=== PATIENT | female | born 1950 | race Caucasian/White ===

== ENCOUNTER → 2021-05-28 15:05 | Outpatient (CLI) | payer OTHER, SELFPAY ==
[2021-05-28 16:34] LABS: Absolute Lymphocyte Count 2.11 X10^3/uL (0.83-4.51); Absolute Neutrophil Count 3.5 X10^3/uL (2.0-7.7); Basophil# 0.06 X10^3/uL; Basophil% 0.9 % (0-1); Eosinophil# 0.13 X10^3/uL; Hematocrit 40.6 % (37-47); Hemoglobin 13.1 g/dL (12.0-15.0); Lymphocyte # 2.11 X10^3/ul (0.83-4.51); Lymphocyte % 32.1 % (19-41); Mean Corp Hgb Conc 32.3 g/dL (32-36); Mean Corpuscular Hgb 27.2 pg (27.0-32.0); Mean Corpuscular Volume 84.4 fL (81-99); Mean Platelet Vol. 10.7 fl (6.2-12.0); Monocyte# 0.71 X10^3/uL; Monocyte% 10.8 % (0-10); NRBC Flagged by Analyzer 0 % (0-5); Neutrophil # 3.54 X10^3/uL (2.7-7.7); Neutrophil % 53.9 % (47-70); Platelet Count 274 K/mm3 (150-450); RBC Distribution Width CV 13.8 % (11.6-14.6); RBC Distribution Width SD 42.5 fl (35.1-43.9); Red Blood Count 4.81 M/mm3 (4.2-5.4); White Blood Count 6.6 K/mm3 (4.4-11.0)
[2021-05-28 16:53] LABS: Vitamin D,25 Hydroxy 72.2 ng/mL
[2021-05-28 17:03] LABS: AST(SGOT) 24 U/L (15-37); Alanine Aminotransfer ALT/SGPT 37 U/L (13-56); Alkaline Phosphatase 55 U/L (45-117); Anion Gap 8 (5-15); BUN 15 mg/dL (7-18); BUN/Creat Ratio 18.5 RATIO (10-20); Calcium,Total 9.9 mg/dL (8.5-10.1); Chloride 107 mmol/L (98-107); Cholesterol 179 mg/dL (200); Creatinine, Serum 0.81 mg/dL (0.55-1.02); EST Glomerular Filtration Rate 74 mL/min (>60); Est Glom Filt Rate - Afr Amer 90 mL/min (>60); Free T3 2.8 pg/mL (2.18-3.98); Glucose 89 mg/dL (74-106); High Density Lipoprotein 62 mg/dL; Lipase 65 U/L (73-393); Magnesium 2.1 mg/dL (1.6-2.6); Potassium 4.4 mmol/L (3.5-5.1); Sodium Level 140 mmol/L (136-145); T4 Free Direct 1.28 ng/dL (0.76-1.46); Thyroid Stim Hormone (TSH) 2.39 uIU/mL (0.358-3.74); Triglycerides 76 mg/dL; Very Low Density Lipoprotein 15 mg/dL (5-40)
[2021-05-28 17:13] LABS: Hemoglobin A1c 5.4 % (3.8-5.6)
[2021-05-28 17:57] LABS: Erythrocyte Sedimentation Rate 38 mm/hr (0-30)
== END ==
PROVIDERS: PCP Family Medicine; Visit Provider Internal Medicine
DX: I89.0 Lymphedema, not elsewhere classified (principal); R10.9 Unspecified abdominal pain; L97.909 Non-pressure chronic ulcer of unspecified part of unspecified lower leg with unspecified severity
CPT/HCPCS: 36415; 80053; 80061; 82306; 83036; 83690; 83735; 84439; 84443; 84481; 85025; 85652

== ENCOUNTER 2021-05-30 17:43 | Emergency (ER) | payer OTHER, SELFPAY ==
[2021-05-30 17:44] VITALS: BP 221/80; PULSE 72; RESP 16; TEMP 36.3; O2SAT 98; BMI 35.9
--- NOTE | 2021-05-30 18:24 | CT_ITS ---
STUDY: CT ABDOMEN AND PELVIS WITH CONTRAST REASON FOR EXAM: Female, 70 years old. Abdominal pain -- IV PO Contrast RADIATION DOSAGE (If Supplied By Facility): CTDIvol = ( 18.24 ) mGy, DLP = ( 1338.95 ) mGycm TECHNIQUE: Transaxial images were obtained from the dome of the diaphragm to the symphysis pubis with oral contrast. Oral and amp; IV Gastrografin and amp; 100mL Isovue-370 was administered. Sagittal and coronal images were reconstructed. Individualized dose optimization techniques were used for this CT. COMPARISON: None. FINDINGS: There are chronic interstitial fibrotic changes of the lung bases. Normal liver. Normal gallbladder and extrahepatic biliary system. Normal spleen. Normal pancreas. Normal bilateral adrenal glands. There is mild cortical atrophy of the right kidney, consistent with chronic medical renal disease. Normal left kidney. Normal visualized stomach. Normal small intestine. There are multiple colonic diverticula consistent with diverticulosis. The appendix is visualized and appears normal. The colon is stool-filled. No free air or free fluid is seen. There is diffuse atherosclerotic calcification of the abdominal aorta, without a demonstrated aneurysm. Normal inferior vena cava. Normal retroperitoneum. Normal urinary bladder. There is atrophy of the uterus. There is a small umbilical hernia containing fat. There are diffuse degenerative changes of the visualized lumbar spine. Chronic appearing compression deformities are present from L1 down to L5. CT/Abdomen/Pelvis WITH Contrast IMPRESSION: 1. Colonic diverticulosis Electronically Signed: Heber Aylaa MD at 21:42 EST , Service support ,
--- NOTE | 2021-05-30 18:25 | EDS_ITS ---
HPI HPI - GI History of Present Illness Chief Complaint: Abd Pain Informant: patient Abdominal Pain/Flank Pain Onset: Month(s) Context: Gradual Onset Timing: Continuous Quality: Aching, Burning, Cramping and Sharp Location: Diffuse Worsened by: - (Everything) Relieved by: Nothing Nausea/Vomiting/Emesis GI Symptom: Negative for Nausea and Vomiting Quality: Negative for Blood streaks, Coffee ground and Hematemesis Diarrhea/Melena/Hematochezia GI Symptom: Negative for Diarrhea, Melena and Hematochezia Stool Quality: Negative for Black, Maroon and BRB per rectum Associated Symptoms Associated Symptoms: Negative for Dysuria, Frequency and Hematuria Narrative Narrative: Patient presents with abdominal pain that has gotten worse over the past couple weeks. Patient states it is gradually getting worse. Patient describes her pain as aching, cramping, sharp, and stabbing, and burning. Patient states that everything makes it worse and nothing makes it better. Patient saw her primary care physician for this 2 days ago. Patient states he did lab work which was all normal. Patient states he was planning on scheduling a CT scan of her abdomen and pelvis in 2 weeks. Patient states she could not wait that long and was told to come to the emergency department. Patient denies any nausea or vomiting. Patient denies any diarrhea, melena, or hematochezia. Patient states her pain radiates into her right leg. Patient also states she has a sore on her right lower leg that will not heal. [facility] Medical History History of fracture Lymphedema Home Medications ASTAXANTHIN PO 05/28/21 [History Last Taken Unknown] B COMPLEX PO 05/28/21 [History Last Taken Unknown] COMPLETE PROBIOTICS PO 05/28/21 [History Last Taken Unknown] EYE SUPPORT PO 05/28/21 [History Last Taken Unknown] FERMENTED TUMERIC PO 05/28/21 [History Last Taken Unknown] FERMENTED MUSHROOM PO 05/28/21 [History Last Taken Unknown] IODINE PO 05/28/21 [History Last Taken Unknown] JOINT FORMULA PO 05/28/21 [History Last Taken Unknown] LIPSOMAL PO 05/28/21 [History Last Taken Unknown] LIVER SUPPORT PO 05/28/21 [History Last Taken Unknown] ORANIC FERMENTED BEETS PO 05/28/21 [History Last Taken Unknown] ORGANIC COLLAGEN PO 05/28/21 [History Last Taken Unknown] QUERCETIN AND PTEROSTILBENE PO 05/28/21 [History Last Taken Unknown] SUPER LYSINE PO 05/28/21 [History Last Taken Unknown] TRACE MINERAL PO 05/28/21 [History Last Taken Unknown] UBIQUINOL PO 05/28/21 [History Last Taken Unknown] VITAMIN D3 AND K2 PO 05/28/21 [History Last Taken Unknown] VITAMIN E PO 05/28/21 [History Last Taken Unknown] WHOLE FOOD VITAMIN PO 05/28/21 [History Last Taken Unknown] ZINC AND SELENIUM PO 05/28/21 [History Last Taken Unknown] hydrocodone-acetaminophen 1 tab PO Q6H PRN PRN 3 Days #10 tablet 05/30/21 [Rx Last Taken Unknown] Allergy/AdvReac Type Severity Reaction Status Date / Time No Known Allergies Allergy Verified 05/30/21 17:43 Family History (Updated 05/24/21 @ 11:14 by Nicole Anderson) Mother Arthritis Bowel disease Cervical cancer Depression Diabetes Myocardial infarction Heart disease Grandmother Colon cancer Father Diabetes Myocardial infarction Brother Thyroid disorder Sister Thyroid disorder Surgical History History of cholecystectomy Social History Smoking Status: Never smoker alcohol intake: never substance use type: does not use what type of physical activity do you participate in: walking ROS ROS ED Constitutional Constitutional ED: Denies chills or fever(s) Eyes Eyes: Denies blurry vision or change in vision ENT ENT ED: Denies rhinorrhea or sore throat Cardiovascular Cardiovascular: Denies chest pain or palpitations Respiratory/Chest Respiratory/Chest: Denies cough or dyspnea Gastrointestinal Gastrointestinal: Reports abdominal pain; Denies nausea or vomiting Genitourinary Genitourinary ED: Denies dysuria or hematuria Musculoskeletal Musculoskeletal: Reports back pain; Denies neck pain Integumentary Denies abscess or rash Neurologic Neurologic: Denies headache(s) or weakness Allergic/Immunologic Allergic/Immunologic ED: Denies mouth swelling or urticaria EXAM Physical Exam Const Vital Signs: 05/30/21 17:44 Temperature 97.4 F L Temperature Source Temporal Pulse Rate 72 Respiratory Rate 16 Blood Pressure 221/80 H Blood Pressure Mean 127 Pulse Ox 98 Oxygen Delivery Method Room Air Positive well nourished and well developed General Appearance ED: well developed HEENT Reports moist mucous membranes Neck supple and no JVD Resp normal respiratory effort and clear to auscultation bilaterally Cardio regular rate, regular rhythm and no murmurs GI normal to inspection, nondistended, normoactive bowel sounds and non-distended Auscultation: normoactive bowel sounds Palpation: soft and tender epigastric, LLQ, RLQ, LUQ, RUQ, periumbilical and suprapubic; Negative for guarding or rebound tenderness present Extremity normal to inspection General Extremety ED: Negative for edema or tenderness General Extremity: Negative for edema Neuro oriented x3, CN's II-XII intact bilaterally and no sensory deficits noted Sensorium / Orientation: alert Motor Exam: strength 5/5 throughout Psych mental status grossly normal Skin no rashes or lesions noted Skin Narrative: There is a 2 cm diameter ulceration over the anterior lateral aspect of the right lower leg. There is no surrounding erythema. There is no purulent discharge or drainage. There are no signs of any infection. MDM MDM MDM Narrative Medical decision making narrative: Patient was given IV fluids, morphine, and Zofran. CBC was within normal limits. Comprehensive metabolic profile was within normal limits. Urinalysis does not show any evidence of urinary tract infection. Patient had a recent lipase done which was normal. CT scan of the abdomen pelvis was obtained. There is no acute intra-abdominal abnormality. There is diverticulosis but no evidence of diverticulitis. The appendix appears normal. This was interpreted by the radiologist and reviewed by myself. Patient was given a repeat dose of morphine here. Patient was given a dose of [place] prior to discharge. Patient was given a prescription for a short course of [place]. Patient was instructed to follow-up with her primary care physician in 3 to 5 days for further evaluation. Patient understands and is agreeable with the plan. All questions were answered. Lab Data Attestation: I reviewed the patient's lab results. Labs: Laboratory Results - last 24 hr 05/30/21 05/30/21 05/30/21 18:50 18:50 19:28 WBC 6.2 RBC 4.75 Hgb 12.5 Hct 39.8 MCV 83.8 MCH 26.3 L MCHC 31.4 L RDW Std Deviation 42.3 RDW Coeff of [place] 13.8 Plt Count 255 MPV 10.2 Immature Gran % (Auto) 0.600 Neut % (Auto) 63.6 Lymph % (Auto) 23.3 [place] % (Auto) 10.9 H Eos % (Auto) 0.8 Baso % (Auto) 0.8 Absolute Neuts (auto) 4.0 Absolute Lymphs (auto) 1.45 Nucleated RBC % 0 Sodium 143 Potassium 3.8 Chloride 110 H Carbon Dioxide 26.0 Anion Gap 7 BUN 15 Creatinine 0.76 Estim Creat Clear Calc 43.92 Est GFR (MDRD) Af Amer 98 Est GFR (MDRD) Non-Af 81 BUN/Creatinine Ratio 19.9 Glucose 100 Calcium 9.4 Total Bilirubin 0.60 AST 24 ALT 35 Alkaline Phosphatase 57 Total Protein 7.5 Albumin 3.5 Globulin 4.0 Albumin/Globulin Ratio 0.9 Urine Color Yellow Urine Clarity Clear Urine pH 6.0 Ur Specific [place] 1.010 Urine Protein Negative Urine Glucose (UA) Normal Urine Ketones 15 H Urine Occult Blood Negative Urine Nitrite Negative Urine Bilirubin Negative Urine Urobilinogen Normal Ur Leukocyte Esterase 25 H Urine RBC 0 SEEN Urine WBC 0-5 SEEN Ur Squamous Epith Cells 0-5 SEEN Urine Bacteria 1+ Urine Mucus 0 SEEN Radiography Diagnostic Testing: Clinical Impression(s) from Imaging Studies Abdomen/Pelvis CT 05/30/21 18:24 IMPRESSION: 1. Colonic diverticulosis Electronically Signed: Heber Ayala MD at 21:42 EST , Service support , Discharge Plan Triage Chief Complaint: Abd Pain ED Provider: Sb Ward Dx/Rx/DC Orders Clinical Impression: Abdominal pain Instructions: ED Abdominal Pain Unkn Cause Fem Prescriptions: New hydrocodone-acetaminophen [hydrocodone-acetaminophen] 1 TABLET tablet 1 tab PO Q6H PRN PRN (Reason: Pain) 3 Days Qty: 10 RF: 0 No Action JOINT FORMULA PO RF: 0 IODINE PO RF: 0 TRACE MINERAL PO RF: 0 EYE SUPPORT PO RF: 0 ASTAXANTHIN PO RF: 0 UBIQUINOL PO RF: 0 LIPSOMAL PO RF: 0 VITAMIN D3 AND K2 PO RF: 0 ORANIC FERMENTED BEETS PO RF: 0 QUERCETIN AND PTEROSTILBENE PO RF: 0 LIVER SUPPORT PO RF: 0 ZINC AND SELENIUM PO RF: 0 COMPLETE PROBIOTICS PO RF: 0 FERMENTED TUMERIC PO RF: 0 VITAMIN E PO RF: 0 ORGANIC COLLAGEN PO RF: 0 B COMPLEX PO RF: 0 FERMENTED MUSHROOM PO RF: 0 SUPER LYSINE PO RF: 0 WHOLE FOOD VITAMIN PO RF: 0 Primary Care Provider: Murtaza Stock Referrals: Luciana Harman MD [STAFF PHYSICIAN] - 3-5 Days Murtaza Stock MD [Primary Care Provider] - 3-5 Days Disposition Disposition: Home, Self Care
[2021-05-30] MEDS: Ondansetron 4 MG/2 ML Vial IV (18:53)
[2021-05-30] MEDS: 0.9% Normal Saline 1,000 ML 1000 ML IV (18:53)
[2021-05-30] MEDS: Morphine 4 MG/ML Syringe IV (18:53)
[2021-05-30 19:12] LABS: Absolute Lymphocyte Count 1.45 X10^3/uL (0.83-4.51); Basophil# 0.05 X10^3/uL; Basophil% 0.8 % (0-1); Eosinophil# 0.05 X10^3/uL; Eosinophils% 0.8 % (0-5); Hematocrit 39.8 % (37-47); Hemoglobin 12.5 g/dL (12.0-15.0); Lymphocyte # 1.45 X10^3/ul (0.83-4.51); Lymphocyte % 23.3 % (19-41); Mean Corp Hgb Conc 31.4 g/dL (32-36); Mean Corpuscular Hgb 26.3 pg (27.0-32.0); Mean Corpuscular Volume 83.8 fL (81-99); Mean Platelet Vol. 10.2 fl (6.2-12.0); Monocyte# 0.68 X10^3/uL; Monocyte% 10.9 % (0-10); NRBC Flagged by Analyzer 0 % (0-5); Neutrophil # 3.96 X10^3/uL (2.7-7.7); Neutrophil % 63.6 % (47-70); Platelet Count 255 K/mm3 (150-450); RBC Distribution Width CV 13.8 % (11.6-14.6); RBC Distribution Width SD 42.3 fl (35.1-43.9); Red Blood Count 4.75 M/mm3 (4.2-5.4); White Blood Count 6.2 K/mm3 (4.4-11.0)
[2021-05-30 19:16] LABS: ALB/GLOB Ratio 0.9 RATIO (0.9-2.4); AST(SGOT) 24 U/L (15-37); Alanine Aminotransfer ALT/SGPT 35 U/L (13-56); Albumin, Serum 3.5 g/dL (3.2-5.0); Alkaline Phosphatase 57 U/L (45-117); Anion Gap 7 (5-15); BUN 15 mg/dL (7-18); BUN/Creat Ratio 19.9 RATIO (10-20); Calcium,Total 9.4 mg/dL (8.5-10.1); Chloride 110 mmol/L (98-107); Creatinine, Serum 0.76 mg/dL (0.55-1.02); EST Glomerular Filtration Rate 81 mL/min (>60); Est Glom Filt Rate - Afr Amer 98 mL/min (>60); Estimated Creatinine Clearance 43.92 ml/min; Glucose 100 mg/dL (74-106); Potassium 3.8 mmol/L (3.5-5.1); Protein, Total 7.5 g/dL (6.4-8.2); Sodium Level 143 mmol/L (136-145)
[2021-05-30 19:38] LABS: Mucous, Urine 0 SEEN /hpf (<or=2+); Red Blood Cells-Urine 0 SEEN /hpf (0-5)
[2021-05-30 19:40] LABS: Color, Urine Yellow (Yellow); Glucose, Dipstick Normal (Normal); Ketone-Dipstick 15 mg/dl (Negative); Leukocyte Esterase-Dipstick 25 /ul (Negative); Nitrite-Dipstick Negative (Negative); Occult Blood-Urine Negative /ul (Negative); Protein-Dipstick Negative (Negative); Urine Bilirubin Dipstick Negative (Negative); Urine Clarity Clear (Clear); Urine Urobilinogen Normal (Normal)
[2021-05-30 19:48] LABS: Bacteria 1+ /hpf (None Seen); Squamous Epithelial Cells - UA 0-5 SEEN /hpf (5-10); White Blood Cells 0-5 SEEN /hpf (0-5)
[2021-05-30] MEDS: HYDROcodone Bitartrate/Apap 5/325 Tablet PO (22:52)
[2021-05-30 22:54] VITALS: BP 155/88; PULSE 81; PULSE 82; RESP 16; O2SAT 97
== END 2021-05-30 23:00 | disposition home or self-care (01) ==
PROVIDERS: Emergency Provider Emergency Medicine; PCP Family Medicine
DX: R10.9 Unspecified abdominal pain (principal); I89.0 Lymphedema, not elsewhere classified; L97.819 Non-pressure chronic ulcer of other part of right lower leg with unspecified severity; Z79.899 Other long term (current) drug therapy
CPT/HCPCS: 74177; 80053; 81001; 85025; 96361; 96374; 96375; 99283; J7030; Q9967; A4216; J2405

== ENCOUNTER → 2021-06-05 12:03 | Outpatient (CLI) | payer OTHER, SELFPAY ==
--- NOTE | 2021-06-05 12:06 | RAD_ITS ---
STUDY: X-RAY - PELVIS AND BILATERAL HIPS REASON FOR EXAM: Female, 70 years old. bilateral hip pain worse on right TECHNIQUE: AP view of the pelvis.? 2 views of the right hip, and 2 views of the left hip were obtained. COMPARISON: None. FINDINGS: There is a non-specific bowel gas pattern. Normal visualized soft tissue structures. Normal bilateral iliac wings, sacroiliac joints and visualized sacrum. Normal bilateral superior and inferior pubic rami. Normal pubic symphysis. Normal bilateral ischial tuberosities. Normal visualized right femoral head. Normal right acetabulum. Normal right hip joint. Normal visualized left femoral head. Normal left acetabulum. Normal left hip joint. RAD/Hips B/L min 2 views w/ Pelvis IMPRESSION: Normal x-ray examination of the pelvis and bilateral hips. Electronically Signed: Harsha Sandoval MD at 14:24 EST Tel , Service support ,
--- NOTE | 2021-06-05 12:15 | RAD_ITS ---
STUDY: X-RAY - LUMBAR SPINE REASON FOR EXAM: Female, 70 years old. low back pain, right side TECHNIQUE: 2 view(s) of the lumbar spine were obtained. COMPARISON: None FINDINGS: Normal lumbar lordosis. Mild scoliosis centered at L3. There is a normal alignment of the vertebrae. Mild loss of height of the L1 and L2 vertebral bodies consistent with mild compression fractures. These may be acute, subacute, chronic and clinical correlation and MRI would be useful. There is multi-level degenerative disc disease with multi-level disc space narrowing. Facet hypertrophy in the lower lumbar spine. The soft tissue structures are unremarkable. RAD/Lumbar Spine 2 or 3 Views IMPRESSION: 1. Mild compression fractures of L1 and L2 which may be acute, subacute, or chronic. Clinical correlation and correlation MRI may be useful. 2. Mild dextroscoliosis with degenerative disc disease. Electronically Signed: Harsha Sandoval MD at 14:25 EST Tel , Service support ,
== END ==
PROVIDERS: PCP Internal Medicine; Referring Provider Physician Assistant; Visit Provider Physician Assistant
DX: L97.909 Non-pressure chronic ulcer of unspecified part of unspecified lower leg with unspecified severity (principal); M54.50 Low back pain, unspecified; M25.552 Pain in left hip; M25.551 Pain in right hip
CPT/HCPCS: 72100; 73521; 87070; 87077; 87186; 87205

== ENCOUNTER 2021-07-23 16:55 | Outpatient (CLI) | payer OTHER, SELFPAY ==
--- NOTE | 2021-07-23 17:05 | MRI_ITS ---
STUDY: MR Spine Lumbar W/O Contrast 07/25/2021 4:46 PM REASON FOR EXAM: Female, 71 years old. Back pain BACK PAIN, no injury TECHNIQUE: MR Spine Lumbar W/O Contrast Standardized fat and water weighted pulse sequences were obtained. COMPARISON: xr Jun 05 2021 12:20pm FINDINGS: T12-L1: Loss of intervertebral disc height. There is endplate spondylosis of the vertebral body. Normal central canal and intervertebral neuroforamina. There is bilateral facet arthropathy. Acute T12 compression deformity with anterior wedging around 15%. Normal lumbar lordosis. There is no substantial scoliosis. Normal conus medullaris that terminates at the L1. There are atherosclerotic vascular calcifications. L1-2: Loss of intervertebral disc height. There is endplate spondylosis of the vertebral body. Normal central canal and intervertebral neuroforamina. There is bilateral facet arthropathy. Acute L1 compression deformity. 5.1 mm retropulsed fracture fragment into the spinal canal. with anterior wedging around 27%. L2-3: Loss of intervertebral disc height. There is endplate spondylosis of the vertebral body. There is bilateral facet arthropathy. Mild spinal stenosis. L3-4: Loss of intervertebral disc height. There is endplate spondylosis of the vertebral body. There is bilateral facet arthropathy. Mild spinal stenosis. Acute L3 compression deformity. No significant loss of body height. L4-5: Loss of intervertebral disc height. There is endplate spondylosis of the vertebral body. There is bilateral facet arthropathy. Mild spinal stenosis. Old superior endplate compression deformity. L5-S1: Loss of intervertebral disc height. There is endplate spondylosis of the vertebral body. There is bilateral facet arthropathy. Mild spinal stenosis. Old superior endplate compression deformity. Normal visualized sacral ala. Normal visualized paraspinous soft tissue structures. MRI/Spine Lumbar (Routine) IMPRESSION: Multilevel degenerative changes, as described above. Multilevel spinal stenosis. T12-L1: Acute T12 compression deformity with anterior wedging around 15%. L1-2: Acute L1 compression deformity. 5.1 mm retropulsed fracture fragment into the spinal canal. with anterior wedging around 27%. L3-4: Acute L3 compression deformity. No significant loss of body height. Electronically Signed: Tyrone Otero MD at 16:53 EST Reading Location ID and State: [facility] / [place] , Service support ,
== END 2021-07-23 23:59 | disposition home or self-care (01) ==
LOC: MRI 16:56
PROVIDERS: PCP Internal Medicine; Visit Provider Anesthesiology Pain Medicine
DX: M80.08XA Age-related osteoporosis with current pathological fracture, vertebra(e), initial encounter for fracture (principal); M54.16 Radiculopathy, lumbar region
CPT/HCPCS: 72148

== ENCOUNTER 2021-08-30 12:56 | Outpatient (CLI) | payer OTHER, SELFPAY ==
[2021-08-30 13:04] LABS: Bacteria 0 SEEN /hpf (None Seen); Mucous, Urine 0 SEEN /hpf (<or=2+); Red Blood Cells-Urine 0 SEEN /hpf (0-5); White Blood Cells 0 SEEN /hpf (0-5)
--- NOTE | 2021-08-30 13:16 | EKG12_ITS ---
Test Reason : PREOP Blood Pressure : / mmHG Vent. Rate : 083 BPM Atrial Rate : 083 BPM P-R Int : 158 ms QRS Dur : 062 ms QT Int : 376 ms P-R-T Axes : 058 037 048 degrees QTc Int : 441 ms Normal sinus rhythm Low voltage QRS Septal infarct , age undetermined Abnormal ECG Confirmed by LARISSA NAVARRO, TAIWO ([id number]), book editor JO-ANN MCFARLAND ([id number]) on 08/31/2021 8:58:20 AM Referred By: Luciana Harman Confirmed By:TAIWO DIAS MD
--- NOTE | 2021-08-30 13:16 | ECHOD_ITS ---
Reason For Study: PRO-OPERATIVE Procedure This was a 2D Doppler, Color Flow transthoracic echocardiogram. The study was technically difficult. Exam performed in department. Left Ventricle Normal LV size. Left ventricular systolic function is normal. The estimated ejection fraction is 70 %. No evidence for diastolic dysfunction. No regional wall motion abnormalities noted. Right Ventricle Normal RV size. Normal systolic function. Atria The left atrium is mildly enlarged. Normal right atrium. No doppler evidence for ASD. Mitral Valve There is mild mitral annular calcification. Anterior leaflet diffuse mitral valve thickening. Mild- Moderate (1-2+) mitral valve insufficiency. Tricuspid Valve Normal tricuspid valve. Trivial tricuspid valve insufficiency. Right ventricular systolic pressure estimated to be 36 mmHg. Aortic Valve Trisinus/trileaflet aortic valve. Mild focal aortic valve calcification. Pulmonic Valve The pulmonic valve is not well visualized. Great Vessels Normal sized aortic root. Pericardium/Pleural No pericardial effusion. MMode/2D Measurements & Calculations LVIDd: 3.9 cm IVSd: 1.0 cm Ao root diam: 3.1 cm LVIDs: 2.5 cm LVPWd: 1.1 cm RVDd: 3.2 cm FS: 35.9 % LAV(MOD-bp): 35.6 ml LVAd ap4: 28.9 cm2 SV(MOD-sp4): 58.8 ml LAV(MOD-bp) Indexed: 18.1 ml/m2 LVLd ap4: 7.9 cm LAV(MOD-sp2): 37.4 ml EDV(MOD-sp4): 87.5 ml LAV(MOD-sp4): 30.4 ml EDV(sp4-el): 89.5 ml LVAs ap4: 14.2 cm2 LVLs ap4: 6.1 cm ESV(MOD-sp4): 28.7 ml ESV(sp4-el): 28.1 ml EF(MOD-sp4): 67.2 % EF(sp4-el): 68.6 % SV(sp4-el): 61.4 ml LA A4 area: 12.6 cm2 LA dimension(2D): 3.7 cm RA A4 area: 13.5 cm2 Time Measurements MV dec time: 0.15 sec Doppler Measurements & Calculations MV E max marino: 123.5 cm/sec Lat Peak E' Marino: 10.3 cm/sec Med Peak E' Marino: 14.2 cm/sec MV A max marino: 92.9 cm/sec E/E' lat: 11.9 E/E' med: 8.7 MV E/A: 1.3 Ao V2 max: 132.3 cm/sec LV V1 max: 138.3 cm/sec PA V2 max: 89.1 cm/sec Ao max P.0 mmHg LV V1 max P.7 mmHg TR max marino: 288.5 cm/sec TR max P.3 mmHg ECHO/Echo Complete Interpretation Summary The study was technically difficult. Left ventricular systolic function is normal. The estimated ejection fraction is 70 %. The left atrium is mildly enlarged. There is mild mitral annular calcification. Anterior leaflet diffuse mitral valve thickening. Mild-Moderate (1-2+) mitral valve insufficiency. Trivial tricuspid valve insufficiency. Mild focal aortic valve calcification. Right ventricular systolic pressure estimated to be 36 mmHg. No evidence for diastolic dysfunction. Ordering Physician: Luciana Harman Referring Physician: Luciana Harman Performed By: Shavon Mahmood RDCS
[2021-08-30 13:33] LABS: Absolute Lymphocyte Count 2.07 X10^3/uL (0.83-4.51); Absolute Neutrophil Count 3.3 X10^3/uL (2.0-7.7); Basophil# 0.06 X10^3/uL; Eosinophil# 0.12 X10^3/uL; Eosinophils% 1.9 % (0-5); Hematocrit 33.7 % (37-47); Hemoglobin 10.6 g/dL (12.0-15.0); Lymphocyte # 2.07 X10^3/ul (0.83-4.51); Lymphocyte % 32.9 % (19-41); Mean Corp Hgb Conc 31.5 g/dL (32-36); Mean Corpuscular Hgb 26.9 pg (27.0-32.0); Mean Corpuscular Volume 85.5 fL (81-99); Monocyte# 0.76 X10^3/uL; Monocyte% 12.1 % (0-10); NRBC Flagged by Analyzer 0 % (0-5); Neutrophil # 3.26 X10^3/uL (2.7-7.7); Neutrophil % 51.6 % (47-70); Platelet Count 284 K/mm3 (150-450); RBC Distribution Width CV 14.5 % (11.6-14.6); RBC Distribution Width SD 44.8 fl (35.1-43.9); Red Blood Count 3.94 M/mm3 (4.2-5.4); White Blood Count 6.3 K/mm3 (4.4-11.0)
[2021-08-30 13:57] LABS: Anion Gap 3 (5-15); BUN 16 mg/dL (7-18); BUN/Creat Ratio 21.3 RATIO (10-20); Calcium,Total 9.2 mg/dL (8.5-10.1); Chloride 109 mmol/L (98-107); Creatinine, Serum 0.75 mg/dL (0.55-1.02); EST Glomerular Filtration Rate 81 mL/min (>60); Est Glom Filt Rate - Afr Amer 98 mL/min (>60); Glucose 108 mg/dL (74-106); Sodium Level 139 mmol/L (136-145)
[2021-08-30 14:00] LABS: BNP,B-Type NATRIURETIC PEPTIDE 102.4 pg/mL (0-100)
[2021-08-30 14:24] LABS: Color, Urine Yellow (Yellow); Glucose, Dipstick Normal (Normal); Ketone-Dipstick Negative (Negative); Leukocyte Esterase-Dipstick Negative /ul (Negative); Nitrite-Dipstick Negative (Negative); Occult Blood-Urine Negative /ul (Negative); Protein-Dipstick Negative (Negative); Specific Gravity, Urine 1.005 (1.002-1.030); Urine Bilirubin Dipstick Negative (Negative); Urine Clarity Clear (Clear); Urine Urobilinogen Normal (Normal); Urine pH 6.5 (5.0 - 8.0)
[2021-08-30 14:40] LABS: Squamous Epithelial Cells - UA 0-5 SEEN /hpf (5-10)
== END 2021-08-30 23:59 | disposition home or self-care (01) ==
PROVIDERS: PCP Internal Medicine; Referring Provider Internal Medicine; Visit Provider Internal Medicine
DX: M81.0 Age-related osteoporosis without current pathological fracture (principal); L97.909 Non-pressure chronic ulcer of unspecified part of unspecified lower leg with unspecified severity; I89.0 Lymphedema, not elsewhere classified; R31.9 Hematuria, unspecified; R10.9 Unspecified abdominal pain
CPT/HCPCS: 36415; 80048; 81001; 83880; 85025; 93005; 93306

== ENCOUNTER 2021-09-04 09:43 | Outpatient (RCR) | payer OTHER, SELFPAY ==
[2021-09-04 10:12] VITALS: BP 194/86; PULSE 82; RESP 16; TEMP 36.2; BMI 38.7
--- NOTE | 2021-09-04 12:25 | PCM.WC.HP ---
History of Present Illness Date of Service: 09/04/21 Progress of Wound: 79-year-old female presents to clinic with bilateral leg swelling and full-thickness ulcerations. Patient notes she has had these ulcerations for greater than 6 months and dealt with them all summer she worked. She suffered a compression fractures and her spine. She recently underwent kyphoplasty approximately 2 weeks prior to this visit. She notes some increased swelling to bilateral legs with pain. She notes redness to the area. She denies any constitutional symptoms. She denies using any compression or at home dressings. She notes that she gets significant pain when there is anything touching her wounds with the wound periwound skin. She denies any other treatments at this time and notes a remote history of lymphedema as a diagnosis. Patient recently underwent an echocardiogram which was normal for her with regards to systolic and diastolic function and an ejection fraction of 70%. Patient has normal renal function. Patient was seen in the ED did have an elevated BNP. Patient has normal hepatic function. No other complaints. [facility] Medical History History of fracture Lymphedema Home Medications B COMPLEX PO 05/28/21 [History Last Taken Unknown] COMPLETE PROBIOTICS PO 05/28/21 [History Last Taken Unknown] EYE SUPPORT PO 05/28/21 [History Last Taken Unknown] FERMENTED TUMERIC PO 05/28/21 [History Last Taken Unknown] FERMENTED MUSHROOM PO 05/28/21 [History Last Taken Unknown] IODINE PO 05/28/21 [History Last Taken Unknown] JOINT FORMULA PO 05/28/21 [History Last Taken Unknown] LIPSOMAL PO 05/28/21 [History Last Taken Unknown] LIVER SUPPORT PO 05/28/21 [History Last Taken Unknown] ORANIC FERMENTED BEETS PO 05/28/21 [History Last Taken Unknown] ORGANIC COLLAGEN PO 05/28/21 [History Last Taken Unknown] QUERCETIN AND PTEROSTILBENE PO 05/28/21 [History Last Taken Unknown] SUPER LYSINE PO 05/28/21 [History Last Taken Unknown] TRACE MINERAL PO 05/28/21 [History Last Taken Unknown] UBIQUINOL PO 05/28/21 [History Last Taken Unknown] VITAMIN D3 AND K2 PO 05/28/21 [History Last Taken Unknown] VITAMIN E PO 05/28/21 [History Last Taken Unknown] WHOLE FOOD VITAMIN PO 05/28/21 [History Last Taken Unknown] ZINC AND SELENIUM PO 05/28/21 [History Last Taken Unknown] hydrocodone-acetaminophen 1 tab PO Q6H PRN PRN 3 Days #10 tablet 05/30/21 [Rx Last Taken Unknown] ondansetron 4 mg disintegrating tablet 4 mg PO Q8H PRN #30 tab 06/05/21 [Rx Last Taken Unknown] furosemide 20 mg tablet 20 mg PO Q OTHER DAY #20 tab 08/07/21 [Rx Last Taken Unknown] gabapentin 300 mg capsule 300 mg PO BID cap 08/07/21 [History Last Taken Unknown] Allergy/AdvReac Type Severity Reaction Status Date / Time No Known Allergies Allergy Verified 09/04/21 10:40 Family History Mother Arthritis Bowel disease Cervical cancer Depression Diabetes Myocardial infarction Heart disease Grandmother Colon cancer Father Diabetes Myocardial infarction Brother Thyroid disorder Sister Thyroid disorder Surgical History History of cholecystectomy Social History Smoking Status: Never smoker alcohol intake: never substance use type: does not use what type of physical activity do you participate in: walking Vital Signs Vital Signs Vital Signs: 09/04/21 10:12 Temperature 97.1 F L Temperature Source Temporal Pulse Rate 82 Respiratory Rate 16 Blood Pressure 194/86 H Blood Pressure Mean 122 Blood Pressure Source Monitor Blood Pressure Position Sitting Blood Pressure Location Right Arm Oxygen Delivery Method Room Air Weight Weight: 92.986 kg Body Mass Index (BMI) 38.7 Physical Exam Narrative Patient alert oriented to person place and time. Patient ambulates with a walker very slowly due to recent spine surgery. Vascular: Dorsalis pedis posterior tibial pulses palpable 2 out of 4 to bilateral lower extremity. +2 pitting edema noted perimalleoli region bilaterally. No evidence of varicosities. Neurologic: Light touch protective sensation intact to bilateral lower extremity. Dermatologic: Full-thickness ulceration noted to the anterior mid tibia to bilateral lower extremity. These wounds have no evidence of deep probing or undermining. There is significant periwound erythema and tenderness. No evidence of purulent drainage. Severe serous drainage noted. No other signs of infection. Musculoskeletal: Positive pain with palpation of popliteal fossa and calf squeeze noted bilaterally. No gross deformity noted. Muscular strength 5 out of 5 to bilateral lower extremity compartments. Debridement Note Debridement Note Post-Debridement Measurements and Additional Note: Post-Debridement Measurements/Treatment - Nurse 1 - General Ulcer Assessment Start: 09/04/21 10:12 Freq: Status: Active Protocol: [email or web address] Activity Type Activity Date Activity User E-Sign Co-Sign Detail Recorded Client Recorded Date Recorded By Document 09/04/21 10:12 BMF [id number] 09/04/21 10:35 BMF Edit Result 09/04/21 10:12 BMF (1) [id number] 09/04/21 10:48 BMF Edit Result 09/04/21 10:12 BMF (2) [id number] 09/04/21 10:49 BMF (1) Pulse Rate (60-100) => 82 Blood Pressure (90/60-120/80) => 194/86 H Blood Pressure Mean => 122 (2) Comment => counseled pt/bernardo => on bp. pt states => shes still in pain => from recent => kyphoplast 09/04/21 10:12 - Today's Visit Information Type of service Initial Visit Arrival Mode Wheelchair Transfer Assistance Manual Transfer Assist (Other) 3 ASSIST Accompanied by DAUGHTER Patient Identification Verified (Name & Yes ) Patient Requires Transmission-Based No Precautions Height and Weight Height 5 ft 1 in Weight 92.986 kg Weight in Pounds 205.0 lbs Weight Measurement Method Estimated by Patient Body Mass Index (BMI) 38.7 BMI Classification Obese BSA - Keisha 1.91 Vital Signs Temperature (97.8 F-99.1 F) 97.1 F L Temperature Source Temporal Pulse Rate (60-100) 82 Pulse Location Monitor Respiratory Rate (12-18) 16 Respiratory rate source Observation Oxygen Delivery Method Room Air Blood Pressure (90/60-120/80) 194/86 H Blood Pressure Mean 122 Source Monitor Position Sitting Blood Pressure Location Right Arm Comment counseled pt/ bernardo on bp. pt states shes still in pain from recent kyphoplast History Since Last Visit- (Skip if this is Patient's initial visit) Left Footwear Slipper Right Footwear Slipper Pain Scale: 0-10 Numeric Is Patient Pain Free? Yes Lower Extremity Assessment/ Foot Assessment/ Toe Nail Assessment Left -Posterior Tibial Palpable No -Posterior Tibial Doppler Inaudible -Dorsalis Pedis Palpable No -Dorsalis Pedis Doppler Multiphasic -Extremity Color Red -Hair Growth on Legs No -Hair Growth on Toes No -Temperature of Extremity Warm -Other Deformity No -Prior Foot Ulcer No -Charcot Joint No -Prior Amputation No -Thick Yes -Discolored Yes -Deformed No -Improper Length & Hygeine Yes Right -Posterior Tibial Palpable No -Posterior Tibial Doppler Monophasic -Dorsalis Pedis Doppler Monophasic -Extremity Color Red -Hair Growth on Legs No -Hair Growth on Toes No -Temperature of Extremity Warm -Other Deformity No -Prior Foot Ulcer No -Charcot Joint No -Prior Amputation No -Thick Yes -Discolored Yes -Deformed No -Improper Length & Hygeine Yes Neuropathy Assessment Feet - Top Side and Bottom <Entered> (a) Communication Assessment Preferred language [place] [employer] Representative Required No Able to Read Yes Able to Write Yes Communication Tools None Right Hearing Abillity Normal Left Hearing Abillity Normal Visual Assistive Devices None Teaching Assessment Preferences Verbal,Written, Audio/Visual, Demonstration Barriers to Learning None Readiness To Learn Excellent Willingness to Engage in Self Management Med Activies Readiness to Engage in Self Management Med Activities Anxiety Level Calm Cooperation Cooperative Perception Coherent Interest in Health Problem Asks Questions Education Importance Acknowledges Need Does Patient Smoke tobacco or other No substances Smoking Status Never smoker Is Patient Diabetic No Functional Assessment Recent Decline in Ability to Perform Denies Any Declines Culture/Jew/[place] Cultural/Jew Needs that may affect No Treatment Plan Teaching: Wound Center *Welcome to the Wound Center -Person Taught Patient,Family -Teaching Method Discussion -Response to teaching Verbalize understanding (a) 1 - + WC - Nurse 1 - General Ulcer Measurement Start: 09/04/21 10:12 Freq: Status: Active Protocol: Activity Type Activity Date Activity User E-Sign Co-Sign Detail Recorded Client Recorded Date Recorded By Document 09/04/21 10:12 [facility] [id number] 09/04/21 10:35 [facility] 09/04/21 10:12 Wound Center Nurse 1 #2- R MERIDA -Combined with other wound No -Current Size (cm) - Length 1.7 -Current Size (cm) - Width 2 -Current Size (cm) - Depth 0.1 -Total Square Cm 3.4 -Date of Last Picture (Recall this 03/29/22 field) -Photo Taken Yes -Epithelialization None Present -Tunneling No -Undermining/Tunneling No -Circular Undermining No -Exudate Amt Medium -Exudate Type Serosanguineous -Wound Margin Distinct, Outline Attached -Granulation Amt Medium (34-66%) -Granulation Quality Red -Slough/Fibrin Yes -Necrosis Amt Medium (34-66%) -Necrotic Tissue Type Adherent Slough -Texture (Liv-wound Skin Appearance) Assessed, Scarring -Moisture (Liv-wound Skin Appearance) Assessed -Color (Liv-wound Skin Appearance) Assessed, Erythema -Temperature (Liv-wound Skin No Abnormality Appearance) (Pt Warm) -Tenderness on Palpation (Liv-wound No Skin Appearance) -Ulcer Cleansing Soap and Water -Foul Odor after Cleansing No -Anesthetic Used 5% Lidocaine Gel #1- L MERIDA -Combined with other wound No -Current Size (cm) - Length 1.4 -Current Size (cm) - Width 2.5 -Current Size (cm) - Depth 0.1 -Total Square Cm 3.50 -Date of Last Picture (Recall this 09/04/21 field) -Photo Taken Yes -Epithelialization None Present -Tunneling No -Undermining/Tunneling No -Circular Undermining No -Exudate Amt Medium -Exudate Type Sanguineous -Wound Margin Flat & Intact -Granulation Amt Medium (34-66%) -Granulation Quality [place] -Slough/Fibrin Yes -Necrosis Amt Medium (34-66%) -Necrotic Tissue Type Adherent Slough -Texture (Liv-wound Skin Appearance) Assessed, Scarring -Moisture (Liv-wound Skin Appearance) Assessed -Color (Liv-wound Skin Appearance) Assessed, Erythema -Temperature (Liv-wound Skin No Abnormality Appearance) (Pt Warm) -Tenderness on Palpation (Liv-wound No Skin Appearance) -Ulcer Cleansing Soap and Water -Foul Odor after Cleansing Yes, Due to Product Use -Anesthetic Used 5% Lidocaine Gel Lower Limb Edema Present Yes Right Calf (cm) 48.5 Right Ankle (cm) 28.4 Left Calf (cm) 47.1 Left Ankle (cm) 27.5 WC - Nurse 2 - General Ulcer CM Notes Start: 09/04/21 10:12 Freq: Status: Active Protocol: Activity Type Activity Date Activity User E-Sign Co-Sign Detail Recorded Client Recorded Date Recorded By Document 09/04/21 11:08 [id number] 09/04/21 11:16 09/04/21 11:08 Wound Center Nurse 2 #2- R MERIDA -Correct Patient No -Correct Side, Site, Position No -Correct Procedure No -Procedure Performed No -Wound/Ulcer Outcome Not Healed #1- L MERIDA -Time 11:09 -Correct Patient Yes -Correct Side, Site, Position Yes -Correct Procedure Yes -Procedure Performed Yes -Type of Procedure Debridement -Clinical Debridement Subcutaneous -Tissue Removed Subcutaneous -Post Debridement (cm) - Length 1.5 -Post Debridement (cm) - Width 2.5 -Post Debridement (cm) - Depth 0.1 -Total Square (Post) (cm) 3.75 -Area of Debridement (cm) - Length 1.5 -Area of Debridement (cm) - Width 2.5 -Total Square (Area) (cm) 3.75 -Tunneling No -Undermining/Tunneling No -Circular Undermining No -Wound/Ulcer Outcome Not Healed -Ulcer Cleansing Rinsed/ Irrigated with Saline -Foul Odor after Cleansing No -Bioengineered Tissue No -Bleeding Controlled with Pressure -Treatment Response Procedure Tolerated Well -Offloading No -Debridement - Subq, 1st 20sq cm Yes Pain Scale: 0-10 Numeric Is Patient Pain Free? Yes - Nurse 3 - General Ulcer D/C NN Start: 09/04/21 10:12 Freq: Status: Active Protocol: Activity Type Activity Date Activity User E-Sign Co-Sign Detail Recorded Client Recorded Date Recorded By Document 09/04/21 11:41 [facility] [id number] 09/04/21 11:42 [facility] 09/04/21 11:41 Wound Care Nurse 3 #2- R MERIDA -Ulcer Cleansing Rinsed/ Irrigated with Saline -Foul Odor after Cleansing No -Primary Dressing Applied Aquacel AG 4x4 -Other Dressing DRSG PER MW RN -Primary Dressing Covered/Secured with Dry Gauze & Roll Gauze, Secured with Tape -Other Covering ABD -Aquacel AG 4x4 1 #1- L MERIDA -Ulcer Cleansing Rinsed/ Irrigated with Saline -Foul Odor after Cleansing No -Primary Dressing Applied Aquacel AG 4x4 -Other Dressing DRSG PER MW RN -Primary Dressing Covered/Secured with Dry Gauze & Roll Gauze, Secured with Tape,Other -Other Covering ABD -Aquacel AG 4x4 0 BLE -Tubular Bandage Single Layer -Size of Tubigrip Used Size F -Size F ($) 2 Treatment Response Procedure Tolerated Well Pain Scale: 0-10 Numeric Is Patient Pain Free? Yes WC - Visit Discharge Discharge Condition Stable Transportation Private Auto Accompanied by BERNARDO Assessment/Plan Assessment/Plan (1) Lymphedema: CODE(S): I89.0 - Lymphedema, not elsewhere classified PLAN: Patient examined evaluated, all findings cussed with patient in detail. Reviewed previous lab work and echocardiogram. Patient has uncontrolled bilateral lower extremity edema secondary to lymphedema. She has developed subsequent full-thickness ulcerations to bilateral lower extremity as well as stasis dermatitis. I recommend exercise compression elevation to manage patients edema. Patient is limited in her ambulation as she is recovering from spinal surgery. Due to increased swelling and tenderness I have recommended duplex ultrasound to rule out DVT. Wounds today were cleansed and periwound skin was cleansed cleaned and dressed the wounds with silver alginate dry sterile dressing and Tubigrip for compression. I called the patient and a prescription for triamcinolone ointment 0.1% this will be applied to the periwound skin along with daily dressing changes consisting of silver alginate dry sterile dressing and Tubigrip. Once her stasis dermatitis and pain resolves slightly will consider additional compression such as Unna boot versus 2 layer compression wrap. Patient will follow up in 1 week (2) Non-pressure chronic ulcer of left calf limited to breakdown of skin: CODE(S): L97.221 - Non-pressure chronic ulcer of left calf limited to breakdown of skin (3) Non-pressure chronic ulcer of left calf with fat layer exposed: CODE(S): L97.222 - Non-pressure chronic ulcer of left calf with fat layer exposed
== END 2021-09-06 23:59 | disposition home or self-care (01) ==
LOC: WC 09:43
PROVIDERS: PCP Internal Medicine; Visit Provider Podiatrist
DX: L97.222 Non-pressure chronic ulcer of left calf with fat layer exposed (principal); R60.0 Localized edema; I89.0 Lymphedema, not elsewhere classified
CPT/HCPCS: 11042; 99213; G0463

== ENCOUNTER 2021-10-16 11:15 | Outpatient (RCR) | payer OTHER, SELFPAY ==
[2021-09-07 00:06] VITALS: BP 194/86; PULSE 82; RESP 16; TEMP 36.2; BMI 38.7
[2021-09-11 11:07] VITALS: BP 181/92; PULSE 84; RESP 16; TEMP 36.5; BMI 38.7
--- NOTE | 2021-09-11 11:46 | PCM.WC.PN ---
History of Present Illness Date of Service: 09/11/21 Progress of Wound: 79-year-old female presents to clinic with bilateral leg swelling and full-thickness ulcerations. Patient notes she has had these ulcerations for greater than 6 months and dealt with them all summer she worked. She suffered a compression fractures and her spine. She recently underwent kyphoplasty approximately 3 weeks prior to this visit. She notes some increased swelling to bilateral legs with pain. She notes redness to the area. She denies any constitutional symptoms. She denies using any compression or at home dressings. She notes improvement in her pain to her leg wounds. Patient denies any new issues since her previous visit. Patient did note that she had some irritation associated with the Tubigrip stocking when it became rolled up in her calf; however, this resolved when she temporarily removed it and reapplied it. No other complaints. Objective Data Objective Data Vital Signs: Vital Signs Temp Pulse Resp BP 97.7 F L 84 16 181/92 H 09/11/21 11:07 09/11/21 11:07 09/11/21 11:07 09/11/21 11:07 Oxygen Delivery Method Room Air Weight: 92.986 kg Body Mass Index (BMI) 38.7 Physical Exam Narrative Patient alert oriented to person place and time. Patient ambulates with a walker very slowly due to recent spine surgery. Vascular: Dorsalis pedis posterior tibial pulses palpable 2 out of 4 to bilateral lower extremity. +2 pitting edema noted perimalleoli region bilaterally. No evidence of varicosities. Neurologic: Light touch protective sensation intact to bilateral lower extremity. Dermatologic: Full-thickness ulceration noted to the anterior mid tibia to bilateral lower extremity. These wounds have no evidence of deep probing or undermining. There is significant periwound erythema and tenderness. No evidence of purulent drainage. Severe serous drainage noted. No other signs of infection. Musculoskeletal: Positive pain with palpation of popliteal fossa and calf squeeze noted bilaterally. No gross deformity noted. Muscular strength 5 out of 5 to bilateral lower extremity compartments. Debridement Note Debridement Note Post-Debridement Measurements and Additional Note: Post-Debridement Measurements/Treatment MACIEJ - Nurse 1 - General Ulcer Assessment Start: 09/11/21 11:07 Freq: Status: Active Protocol: LOWEXT Activity Type Activity Date Activity User E-Sign Co-Sign Detail Recorded Client Recorded Date Recorded By Document 09/11/21 11:07 [facility] [id number] 09/11/21 11:23 [facility] 09/11/21 11:07 WC - Today's Visit Information Type of service Follow-up Visit (Physician/FALAFEL CART COOK ) Arrival Mode Wheelchair Transfer Assistance Other Transfer Assist (Other) 2 stand by Accompanied by daughter Patient Identification Verified (Name & Yes ) Patient Requires Transmission-Based No Precautions Height and Weight Weight Measurement Method Estimated by Patient Body Mass Index (BMI) 38.7 BMI Classification Obese Vital Signs Temperature (97.8 F-99.1 F) 97.7 F L Temperature Source Temporal Pulse Rate (60-100) 84 Pulse Location Monitor Respiratory Rate (12-18) 16 Respiratory rate source Observation Oxygen Delivery Method Room Air Blood Pressure (90/60-120/80) 181/92 H Blood Pressure Mean (mm Hg) 121 Source Monitor Position Sitting Blood Pressure Location Right Arm Comment pt anxious, and painful-back History Since Last Visit- (Skip if this is Patient's initial visit) Have you changed medications since your No last visit? Any new allergies or adverse reactions No Had a fall/change in ADL's that may No increase risk of falls Signs or symptoms of abuse and/or No neglect since last visit Have you been in the hospital since your No last visit? Has dressing in place as prescribed Yes Has compression in place as prescribed Yes Has offloadiing in place as prescribed N/A Experienced any changes in pain level or No management Left Footwear Slipper Right Footwear Slipper Pain Scale: 0-10 Numeric Is Patient Pain Free? No back- -Intensity 10 -Duration (hours) Chronic -Pain Behavior Moaning, Restlessness, Facial Grimacing -Pain Aggravating Factors Sitting -Alleviating Factors/Interventions Turning/ Repositioning, Distraction, Will continue to monitor, Patient denies need for intervention, Emotional Support - Nurse 1 - General Ulcer Measurement Start: 09/11/21 11:07 Freq: Status: Active Protocol: Activity Type Activity Date Activity User E-Sign Co-Sign Detail Recorded Client Recorded Date Recorded By Document 09/11/21 11:07 [facility] [id number] 09/11/21 11:23 [facility] 09/11/21 11:07 Wound Center Nurse 1 #2- R MERIDA -Combined with other wound No -Current Size (cm) - Length 1.5 -Current Size (cm) - Width 1.6 -Current Size (cm) - Depth 0.1 -Total Square Cm 2.40 -Photo Taken No -Epithelialization None Present -Tunneling No -Undermining/Tunneling No -Circular Undermining No -Exudate Amt Medium -Exudate Type Serous -Wound Margin Distinct, Outline Attached -Granulation Amt Small (1-33%) -Granulation Quality Red -Slough/Fibrin Yes -Necrosis Amt Large (67-100%) -Necrotic Tissue Type Adherent Slough -Texture (Liv-wound Skin Appearance) Assessed, Scarring -Moisture (Liv-wound Skin Appearance) Assessed -Color (Liv-wound Skin Appearance) Assessed, Hemosiderin Staining -Temperature (Liv-wound Skin No Abnormality Appearance) (Pt Warm) -Tenderness on Palpation (Liv-wound Yes Skin Appearance) -Ulcer Cleansing Rinsed/ Irrigated with Saline -Foul Odor after Cleansing No -Anesthetic Used 4% Lidocaine Solution #1- L MERIDA -Combined with other wound No -Current Size (cm) - Length 2.4 -Current Size (cm) - Width 1.2 -Current Size (cm) - Depth 0.2 -Total Square Cm 2.88 -Photo Taken No -Epithelialization None Present -Tunneling No -Undermining/Tunneling No -Circular Undermining No -Exudate Amt Medium -Exudate Type Serous -Wound Margin Distinct, Outline Attached -Granulation Amt Medium (34-66%) -Granulation Quality Red -Slough/Fibrin Yes -Necrosis Amt Medium (34-66%) -Necrotic Tissue Type Adherent Slough -Texture (Liv-wound Skin Appearance) Assessed, Scarring -Moisture (Liv-wound Skin Appearance) Assessed -Color (Liv-wound Skin Appearance) Assessed, Hemosiderin Staining -Temperature (Liv-wound Skin No Abnormality Appearance) (Pt Warm) -Tenderness on Palpation (Liv-wound Yes Skin Appearance) -Ulcer Cleansing Rinsed/ Irrigated with Saline -Foul Odor after Cleansing No -Anesthetic Used 4% Lidocaine Solution Lower Limb Edema Present Yes Right Calf (cm) 46.3 Right Ankle (cm) 26.2 Left Calf (cm) 44.7 Left Ankle (cm) 26.6 WC - Nurse 2 - General Ulcer CM Notes Start: 09/11/21 11:07 Freq: Status: Active Protocol: Activity Type Activity Date Activity User E-Sign Co-Sign Detail Recorded Client Recorded Date Recorded By Document 09/11/21 11:37 ALEXANDER [id number] 09/11/21 11:41 ALEXANDER 09/11/21 11:37 Wound Center Nurse 2 #2- R MERIDA -Time 11:37 -Correct Patient Yes -Correct Side, Site, Position Yes -Correct Procedure Yes -Procedure Performed Yes -Type of Procedure Debridement -Clinical Debridement Subcutaneous -Tissue Removed Subcutaneous -Post Debridement (cm) - Length 1.6 -Post Debridement (cm) - Width 1.6 -Post Debridement (cm) - Depth 0.1 -Total Square (Post) (cm) 2.56 -Area of Debridement (cm) - Length 1.6 -Area of Debridement (cm) - Width 1.6 -Total Square (Area) (cm) 2.56 -Tunneling No -Undermining/Tunneling No -Circular Undermining No -Wound/Ulcer Outcome Not Healed -Ulcer Cleansing Rinsed/ Irrigated with Saline -Foul Odor after Cleansing No -Bioengineered Tissue No -Bleeding Controlled with Pressure -Treatment Response Procedure Tolerated Well -Offloading No -Debridement - Subq, 1st 20sq cm Yes #1- L MERIDA -Time 11:38 -Correct Patient Yes -Correct Side, Site, Position Yes -Correct Procedure Yes -Procedure Performed Yes -Type of Procedure Debridement -Clinical Debridement Subcutaneous -Tissue Removed Subcutaneous -Post Debridement (cm) - Length 2.5 -Post Debridement (cm) - Width 1.2 -Post Debridement (cm) - Depth 0.2 -Total Square (Post) (cm) 3.00 -Area of Debridement (cm) - Length 2.5 -Area of Debridement (cm) - Width 1.2 -Total Square (Area) (cm) 3.00 -Tunneling No -Undermining/Tunneling No -Circular Undermining No -Wound/Ulcer Outcome Not Healed -Ulcer Cleansing Rinsed/ Irrigated with Saline -Foul Odor after Cleansing No -Bioengineered Tissue No -Bleeding Controlled with Pressure -Treatment Response Procedure Tolerated Well -Offloading No -Debridement - Subq, 1st 20sq cm No Pain Scale: 0-10 Numeric Is Patient Pain Free? Yes Assessment/Plan Assessment/Plan (1) Non-pressure chronic ulcer of left calf with fat layer exposed: CODE(S): L97.222 - Non-pressure chronic ulcer of left calf with fat layer exposed PLAN: Patient examined evaluated, all findings cussed with patient in detail. Bilateral leg ulcerations appear improved at this time, there is still significant periwound erythema likely secondary to stasis dermatitis. Wounds to bilateral legs were excisionally debrided down to including level of subcutaneous tissue of all nonviable tissue using a 5 mm dermal curette without incident topical anesthesia was used hemostasis obtained with light compression patient tolerated procedure well in apparent satisfactory condition. Wound was cleansed with saline and dressed with Anna dry sterile dressing and Tubigrip bilateral lower extremity. I recommend increased compression level with a 2 layer compression wrap or an Unna boot; however, the patient defers. Patient is awaiting duplex ultrasound to rule out DVT. Patient is recovering from kyphoplasty and is approximately 3 weeks postop. Patient will continue ambulation as tolerated. She will elevate her legs at rest. No indication for antibiotics at this time. She will follow up in 1 week and will continue local wound care. Consider any advanced wound care products if there are any delays in healing. (2) Non-pressure chronic ulcer of right calf with fat layer exposed: CODE(S): L97.212 - Non-pressure chronic ulcer of right calf with fat layer exposed
[2021-10-02 11:29] VITALS: RESP 16; TEMP 35.4; BMI 38.7
--- NOTE | 2021-10-02 12:17 | PN.PCM_ITS ---
History of Present Illness Date of Service: 10/02/21 Progress of Wound: 79-year-old female presents to clinic with bilateral leg swelling and for follow-up on full-thickness ulcerations. Patient notes she has had these ulcerations for greater than 6 months and dealt with them all summer she worked. She suffered a compression fractures and her spine. She is recovering from kyphoplasty at this time. Patient notes improvement in her wounds and to the pain associated with her wounds. Patient has no new compla ints at this time and denies any constitutional symptoms. Objective Data Objective Data Vital Signs: Vital Signs Temp Pulse Resp BP 95.7 F L 84 16 181/92 H 10/02/21 11:29 09/11/21 11:07 10/02/21 11:29 09/11/21 11:07 Oxygen Delivery Method Room Air Weight: 92.986 kg Body Mass Index (BMI) 38.7 Physical Exam Narrative Patient alert oriented to person place and time. Patient ambulates with a walker very slowly due to recent spine surgery. Vascular: Dorsalis pedis posterior tibial pulses palpable 2 out of 4 to bilateral lower extremity. +2 pitting edema noted perimalleoli region bilaterally. No evidence of varicosities. Neurologic: Light touch protective sensation intact to bilateral lower extremity. Dermatologic: Full-thickness ulceration noted to the anterior mid tibia to bilateral lower extremity. These wounds have no evidence of deep probing or undermining. There is significant periwound erythema and tenderness. No evidence of purulent drainage. Severe serous drainage noted. No other signs of infection. These wounds are significantly improved at this time. Musculoskeletal: Positive pain with palpation of popliteal fossa and calf squeeze noted bilaterally. No gross deformity noted. Muscular strength 5 out of 5 to bilateral lower extremity compartments. Debridement Note Debridement Note Post-Debridement Measurements and Additional Note: Post-Debridement Measurements/Treatment WC - Nurse 1 - General Ulcer Assessment Start: 09/11/21 11:07 Freq: Status: Active Protocol: [email or web address].[email or web address] Activity Type Activity Date Activity User E-Sign Co-Sign Detail Recorded Client Recorded Date Recorded By Document 09/11/21 11:07 [facility] [id number] 09/11/21 11:23 BMF Document 10/02/21 11:29 [facility] [id number] 10/02/21 11:48 BMF 09/11/21 10/02/21 11:07 11:29 - Today's Visit Information Type of service Follow-up Visit Follow-up Visit (Physician/PROPOSAL DEVELOPMENT MANAGER (Physician/PROPOSAL DEVELOPMENT MANAGER ) ) Arrival Mode Wheelchair Wheelchair Transfer Assistance Other Other Transfer Assist (Other) 2 stand by stand by Accompanied by daughter daughter Patient Identification Verified (Name & Yes Yes ) Patient Requires Transmission-Based No No Precautions Height and Weight Weight Measurement Method Estimated by Patient Body Mass Index (BMI) 38.7 38.7 BMI Classification Obese Obese Vital Signs Temperature (97.8 F-99.1 F) 97.7 F L 95.7 F L Temperature Source Temporal Temporal Pulse Rate (60-100) 84 Pulse Location Monitor Monitor Respiratory Rate (12-18) 16 16 Respiratory rate source Observation Observation Oxygen Delivery Method Room Air Room Air Blood Pressure (90/60-120/80) 181/92 H Blood Pressure Mean (mm Hg) 121 Source Monitor Monitor Position Sitting Sitting Blood Pressure Location Right Arm Right Forearm Comment pt anxious, and painful-back History Since Last Visit- (Skip if this is Patient's initial visit) Have you changed medications since your No No last visit? Any new allergies or adverse reactions No No Had a fall/change in ADL's that may No No increase risk of falls Signs or symptoms of abuse and/or No No neglect since last visit Have you been in the hospital since your No No last visit? Has dressing in place as prescribed Yes Yes Has compression in place as prescribed Yes Yes Has offloadiing in place as prescribed N/A N/A Experienced any changes in pain level or No No management Left Footwear Slipper Slipper Right Footwear Slipper Slipper Pain Scale: 0-10 Numeric Is Patient Pain Free? No Yes back- -Intensity 10 -Duration (hours) Chronic -Pain Behavior Moaning, Restlessness, Facial Grimacing -Pain Aggravating Factors Sitting -Alleviating Factors/Interventions Turning/ Repositioning, Distraction, Will continue to monitor, Patient denies need for intervention, Emotional Support - Nurse 1 - General Ulcer Measurement Start: 09/11/21 11:07 Freq: Status: Active Protocol: Activity Type Activity Date Activity User E-Sign Co-Sign Detail Recorded Client Recorded Date Recorded By Document 09/11/21 11:07 [facility] [id number] 09/11/21 11:23 [facility] Document 10/02/21 11:29 [facility] [id number] 10/02/21 11:48 [facility] 09/11/21 10/02/21 11:07 11:29 Wound Center Nurse 1 #2- R MERIDA -Combined with other wound No No -Current Size (cm) - Length 1.5 1.5 -Current Size (cm) - Width 1.6 1.5 -Current Size (cm) - Depth 0.1 0.1 -Total Square Cm 2.40 2.25 -Date of Last Picture (Recall this 10/02/21 field) -Photo Taken No Yes -Epithelialization None Present None Present -Tunneling No No -Undermining/Tunneling No No -Circular Undermining No No -Exudate Amt Medium None Present -Exudate Type Serous -Wound Margin Distinct, Distinct, Outline Outline Attached Attached -Granulation Amt Small (1-33%) None Present (0 %) -Granulation Quality Red -Slough/Fibrin Yes Yes -Necrosis Amt Large (67-100%) Large (67-100%) -Necrotic Tissue Type Adherent Slough Adherent Slough -Texture (Liv-wound Skin Appearance) Assessed, Assessed, Scarring Scarring -Moisture (Liv-wound Skin Appearance) Assessed Assessed -Color (Liv-wound Skin Appearance) Assessed, Assessed, Hemosiderin Hemosiderin Staining Staining -Temperature (Liv-wound Skin No Abnormality No Abnormality Appearance) (Pt Warm) (Pt Warm) -Tenderness on Palpation (Liv-wound Yes No Skin Appearance) -Ulcer Cleansing Rinsed/ Soap and Water Irrigated with Saline -Foul Odor after Cleansing No No -Anesthetic Used 4% Lidocaine 4% Lidocaine Solution Solution #1- L MERIDA -Combined with other wound No No -Current Size (cm) - Length 2.4 2.6 -Current Size (cm) - Width 1.2 1.8 -Current Size (cm) - Depth 0.2 0.1 -Total Square Cm 2.88 4.68 -Date of Last Picture (Recall this 10/02/21 field) -Photo Taken No Yes -Epithelialization None Present None Present -Tunneling No No -Undermining/Tunneling No No -Circular Undermining No No -Exudate Amt Medium None Present -Exudate Type Serous -Wound Margin Distinct, Distinct, Outline Outline Attached Attached -Granulation Amt Medium (34-66%) None Present (0 %) -Granulation Quality Red -Slough/Fibrin Yes Yes -Necrosis Amt Medium (34-66%) Large (67-100%) -Necrotic Tissue Type Adherent Slough Adherent Slough -Texture (Liv-wound Skin Appearance) Assessed, Assessed, Scarring Scarring -Moisture (Liv-wound Skin Appearance) Assessed Assessed,Dry/ Scaly -Color (Liv-wound Skin Appearance) Assessed, Assessed, Hemosiderin Hemosiderin Staining Staining -Temperature (Liv-wound Skin No Abnormality No Abnormality Appearance) (Pt Warm) (Pt Warm) -Tenderness on Palpation (Liv-wound Yes Yes Skin Appearance) -Ulcer Cleansing Rinsed/ Soap and Water Irrigated with Saline -Foul Odor after Cleansing No No -Anesthetic Used 4% Lidocaine 4% Lidocaine Solution Solution Lower Limb Edema Present Yes Yes Right Calf (cm) 46.3 40.9 Right Ankle (cm) 26.2 24.5 Left Calf (cm) 44.7 39.2 Left Ankle (cm) 26.6 24.9 WC - Nurse 2 - General Ulcer CM Notes Start: 09/11/21 11:07 Freq: Status: Active Protocol: Activity Type Activity Date Activity User E-Sign Co-Sign Detail Recorded Client Recorded Date Recorded By Document 09/11/21 11:37 [id number] 09/11/21 11:41 Document 10/02/21 12:02 [id number] 10/02/21 12:08 09/11/21 10/02/21 11:37 12:02 Wound Center Nurse 2 #2- R MERIDA -Time 11:37 12:03 -Correct Patient Yes Yes -Correct Side, Site, Position Yes Yes -Correct Procedure Yes Yes -Procedure Performed Yes Yes -Type of Procedure Debridement Debridement -Clinical Debridement Subcutaneous Subcutaneous -Tissue Removed Subcutaneous Subcutaneous -Post Debridement (cm) - Length 1.6 0.6 -Post Debridement (cm) - Width 1.6 0.1 -Post Debridement (cm) - Depth 0.1 0.1 -Total Square (Post) (cm) 2.56 0.06 -Area of Debridement (cm) - Length 1.6 0.6 -Area of Debridement (cm) - Width 1.6 0.1 -Total Square (Area) (cm) 2.56 0.06 -Tunneling No No -Undermining/Tunneling No No -Circular Undermining No No -Wound/Ulcer Outcome Not Healed Not Healed -Ulcer Cleansing Rinsed/ Rinsed/ Irrigated with Irrigated with Saline Saline -Foul Odor after Cleansing No No -Bioengineered Tissue No No -Bleeding Controlled with Pressure Pressure -Treatment Response Procedure Procedure Tolerated Well Tolerated Well -Offloading No No -Debridement - Subq, 1st 20sq cm Yes Yes #1- L MERIDA -Time 11:38 12:03 -Correct Patient Yes Yes -Correct Side, Site, Position Yes Yes -Correct Procedure Yes Yes -Procedure Performed Yes Yes -Type of Procedure Debridement Debridement -Clinical Debridement Subcutaneous Subcutaneous -Tissue Removed Subcutaneous Subcutaneous -Post Debridement (cm) - Length 2.5 0.1 -Post Debridement (cm) - Width 1.2 0.1 -Post Debridement (cm) - Depth 0.2 0.1 -Total Square (Post) (cm) 3.00 0.01 -Area of Debridement (cm) - Length 2.5 0.1 -Area of Debridement (cm) - Width 1.2 0.1 -Total Square (Area) (cm) 3.00 0.01 -Tunneling No No -Undermining/Tunneling No No -Circular Undermining No No -Wound/Ulcer Outcome Not Healed Not Healed -Ulcer Cleansing Rinsed/ Rinsed/ Irrigated with Irrigated with Saline Saline -Foul Odor after Cleansing No No -Bioengineered Tissue No No -Bleeding Controlled with Pressure Pressure -Treatment Response Procedure Procedure Tolerated Well Tolerated Well -Offloading No No -Debridement - Subq, 1st 20sq cm No No Pain Scale: 0-10 Numeric Is Patient Pain Free? Yes Yes - Nurse 3 - General Ulcer D/C NN Start: 09/11/21 11:07 Freq: Status: Active Protocol: Activity Type Activity Date Activity User E-Sign Co-Sign Detail Recorded Client Recorded Date Recorded By Document 09/11/21 11:57 [facility] [id number] 09/11/21 11:59 [facility] Document 10/02/21 12:09 [id number] 10/02/21 12:09 ALEXANDER 09/11/21 10/02/21 11:57 12:09 Wound Care Nurse 3 #2- R MERIDA -Ulcer Cleansing Rinsed/ Rinsed/ Irrigated with Irrigated with Saline Saline -Foul Odor after Cleansing No No -Primary Dressing Applied Aquacel AG 4x4 C Hydrogel ($), NonAdherent Contact Layer -Other Dressing drsg per ak professional nurse -Primary Dressing Covered/Secured with Dry Gauze & Dry Gauze & Roll Gauze, Roll Gauze, Secured with Secured with Tape Tape -Aquacel AG 4x4 1 #1- L MERIDA -Ulcer Cleansing Rinsed/ Rinsed/ Irrigated with Irrigated with Saline Saline -Foul Odor after Cleansing No No -Primary Dressing Applied Aquacel AG 4x4 C Hydrogel ($), NonAdherent Contact Layer -Primary Dressing Covered/Secured with Dry Gauze & Dry Gauze & Roll Gauze, Roll Gauze, Secured with Secured with Tape Tape -Other Covering drsg per [place] professional nurse -Aquacel AG 4x4 0 BLE -Lotion applied to leg before No compression wrap -Tubular Bandage Single Layer Single Layer -Size of Tubigrip Used Size F Size F -Size F ($) 2 1 Treatment Response Procedure Tolerated Well Pain Scale: 0-10 Numeric Is Patient Pain Free? Yes Yes WC - Visit Discharge Discharge Condition Stable Stable Ambulatory Status Wheelchair Ambulatory Transportation Private Auto Private Auto Accompanied by daughter Medication Reconcilliation completed & Yes provided to patient/care provider Clinical Summary of Care Provided Yes Assessment/Plan Assessment/Plan (1) Non-pressure chronic ulcer of left calf with fat layer exposed: CODE(S): L97.222 - Non-pressure chronic ulcer of left calf with fat layer exposed PLAN: Patient examined evaluated, all findings cussed with patient in detail. Bilateral leg ulcerations appear improved at this time, there is still significant periwound erythema likely secondary to stasis dermatitis. Wounds to bilateral legs were excisionally debrided down to including level of subcutaneous tissue of all nonviable tissue using a 5 mm dermal curette without incident topical anesthesia was used hemostasis obtained with light compression patient tolerated procedure well in apparent satisfactory condition. Wound was cleansed with saline and dressed with hydrogel dry sterile dressing and Tubigrip bilateral lower extremity. I recommend increased compression level with a 2 layer compression wrap or an Unna boot; however, the patient defers. Patient is awaiting duplex ultrasound to rule out DVT. Patient is scheduled for of this week. Patient will continue ambulation as tolerated. She will elevate her legs at rest. She will continue external compression. No indication for antibiotics at this time. She will follow up in 1 week and will continue local wound care. Consider any advanced wound care products if there are any delays in healing. (2) Non-pressure chronic ulcer of right calf with fat layer exposed: CODE(S): L97.212 - Non-pressure chronic ulcer of right calf with fat layer exposed
--- NOTE | 2021-10-04 13:41 | VDLE_ITS ---
Reason For Study: Edema RIGHT LEFT CFV appears patent with color flow, normal CFV appears patent with color flow, normal venous flow noted. venous flow noted. FV appears patent with color flow, normal FV appears patent with color flow, normal venous flow noted. venous flow noted. PopV is compressible with normal venous flow PopV appears patent with color flow, normal noted. venous flow noted. T/P trunk appears patent with color flow. T/P trunk appears patent with color flow. PTV appears patent with color flow. PTV appears patent with color flow. PeroV appears patent with color flow. PeroV appears patent with color flow. SFJ is competent and measures 0.77 x 0.88 cm. SFJ is INCOMPETENT and measures 0.71 x 0.74 GSV proximal thigh measures 0.48 x 0.48 cm. cm. GSV at knee measures 0.41 x 0.41 cm. GSV proximal thigh measures 0.44 x 0.42 cm. GSV INCOMPETENT throughout for greater than GSV at knee measures 0.43 cm. 0.5 seconds. GSV INCOMPETENT throughout for greater than SSV at junction is competent and measures 0.5 seconds. 0.14 x 0.13 cm. ASV proximal thigh is INCOMPETENT for Procedure greater than 0.5 seconds and measures 0.26 x This is a venous duplex using B-mode, color 0.27 cm. flow and spectral Doppler. ASV distal thigh is INCOMPETENT for greater Exam performed in department. than 0.5 seconds and measures 0.40 x 0.40 Patient unable to tolerate compression, cm. vessles visualized with color flow only. SSV at junction is competent and measures 0.13 x 0.12 cm. VL/Venous Duplex US - Vasiliy Extrem Interpretation Summary Deep veins of the lower extremities appear patent bilaterally. There is no evid ence of acute deep vein thrombosis on either side. The great saphenous veins appear bilaterally pa tent and compressible segmentally. The right sapheno-femoral junction is competent . The left sapheno -femoral junction is incompetent . Segmental valvular incompetence is noted within the great sapheno us veins bilaterally. Small saphenous veins are patent and competent bilaterally. Accessory saphenous veins in the left proximal and distal thigh are incompetent. Ordering Physician: Jona Alanis Referring Physician: Luciana Harman M.D. Performed By: Christina Chapman RVT
[2021-10-16 11:22] VITALS: RESP 20; TEMP 36.5; BMI 38.7
--- NOTE | 2021-10-16 11:54 | PCM.WC.PN ---
History of Present Illness Date of Service: 10/16/21 Progress of Wound: 79-year-old female presents to clinic with bilateral leg swelling and for follow-up on full-thickness ulcerations. Patient notes she has had these ulcerations for greater than 6 months and dealt with them all summer she worked. She suffered a compression fractures and her spine. She is recovering from kyphoplasty at this time. Patient notes improvement in her wounds and to the pain associated with her wounds. Patient has no new complaints at this time and denies any constitutional symptoms. Objective Data Objective Data Vital Signs: Vital Signs Temp Pulse Resp BP 97.7 F L 84 20 H 181/92 H 10/16/21 11:22 09/11/21 11:07 10/16/21 11:22 09/11/21 11:07 Oxygen Delivery Method Room Air Weight: 92.986 kg Body Mass Index (BMI) 38.7 Physical Exam Narrative Patient alert oriented to person place and time. Patient ambulates with a walker very slowly due to recent spine surgery. Vascular: Dorsalis pedis posterior tibial pulses palpable 2 out of 4 to bilateral lower extremity. +2 pitting edema noted perimalleoli region bilaterally. No evidence of varicosities. Neurologic: Light touch protective sensation intact to bilateral lower extremity. Dermatologic: Full-thickness ulceration noted to the anterior mid tibia to bilateral lower extremity. These wounds have no evidence of deep probing or undermining. There is significant periwound erythema and tenderness. No evidence of purulent drainage. Severe serous drainage noted. No other signs of infection. These wounds are significantly improved at this time. Musculoskeletal: Positive pain with palpation of popliteal fossa and calf squeeze noted bilaterally. No gross deformity noted. Muscular strength 5 out of 5 to bilateral lower extremity compartments. Debridement Note Debridement Note Post-Debridement Measurements and Additional Note: Post-Debridement Measurements/Treatment AMCIEJ - Nurse 1 - General Ulcer Assessment Start: 09/11/21 11:07 Freq: Status: Active Protocol: RAMAN Activity Type Activity Date Activity User E-Sign Co-Sign Detail Recorded Client Recorded Date Recorded By Document 09/11/21 11:07 [facility] [id number] 09/11/21 11:23 BM Document 10/02/21 11:29 BM [id number] 10/02/21 11:48 BM Document 10/16/21 11:22 DL [id number] 10/16/21 11:29 DL 09/11/21 10/02/21 10/16/21 11:07 11:29 11:22 WC - Today's Visit Information Type of service Follow-up Visit Follow-up Visit Follow-up Visit (Physician/MANAGER CALL (Physician/MANAGER CALL (Physician/MANAGER CALL ) ) ) Arrival Mode Wheelchair Wheelchair Ambulatory, Wheelchair Transfer Assistance Other Other None Transfer Assist (Other) 2 stand by stand by Accompanied by daughter daughter Patient Identification Verified (Name & Yes Yes Yes ) Patient Requires Transmission-Based No No No Precautions Height and Weight Weight Measurement Method Estimated by Patient Body Mass Index (BMI) 38.7 38.7 38.7 BMI Classification Obese Obese Obese Vital Signs Temperature (97.8 F-99.1 F) 97.7 F L 95.7 F L 97.7 F L Temperature Source Temporal Temporal Temporal Pulse Rate (60-100) 84 Pulse Location Monitor Monitor Respiratory Rate (12-18) 16 16 20 H Respiratory rate source Observation Observation Observation Oxygen Delivery Method Room Air Room Air Blood Pressure (90/60-120/80) 181/92 H Blood Pressure Mean (mm Hg) 121 Source Monitor Monitor Position Sitting Sitting Blood Pressure Location Right Arm Right Forearm Comment pt anxious, and painful-back History Since Last Visit- (Skip if this is Patient's initial visit) Have you changed medications since your No No No last visit? Any new allergies or adverse reactions No No No Had a fall/change in ADL's that may No No No increase risk of falls Signs or symptoms of abuse and/or No No No neglect since last visit Have you been in the hospital since your No No No last visit? Has dressing in place as prescribed Yes Yes Yes Has compression in place as prescribed Yes Yes Yes Has offloadiing in place as prescribed N/A N/A N/A Experienced any changes in pain level or No No No management Left Footwear Slipper Slipper Slipper Right Footwear Slipper Slipper Slipper Pain Scale: 0-10 Numeric Is Patient Pain Free? No Yes Yes back- -Intensity 10 -Duration (hours) Chronic -Pain Behavior Moaning, Restlessness, Facial Grimacing -Pain Aggravating Factors Sitting -Alleviating Factors/Interventions Turning/ Repositioning, Distraction, Will continue to monitor, Patient denies need for intervention, Emotional Support - Nurse 1 - General Ulcer Measurement Start: 09/11/21 11:07 Freq: Status: Active Protocol: Activity Type Activity Date Activity User E-Sign Co-Sign Detail Recorded Client Recorded Date Recorded By Document 09/11/21 11:07 [facility] [id number] 09/11/21 11:23 BM Document 10/02/21 11:29 BMF [id number] 10/02/21 11:48 BMF Document 10/16/21 11:22 DL [id number] 10/16/21 11:29 DL 09/11/21 10/02/21 10/16/21 11:07 11:29 11:22 Wound Center Nurse 1 #2- R MERIDA -Combined with other wound No No -Current Size (cm) - Length 1.5 1.5 0.1 -Current Size (cm) - Width 1.6 1.5 0.1 -Current Size (cm) - Depth 0.1 0.1 0.1 -Total Square Cm 2.40 2.25 0.01 -Date of Last Picture (Recall this 10/02/21 field) -Photo Taken No Yes No -Epithelialization None Present None Present -Tunneling No No -Undermining/Tunneling No No -Circular Undermining No No -Exudate Amt Medium None Present None Present -Exudate Type Serous -Wound Margin Distinct, Distinct, Flat & Intact Outline Outline Attached Attached -Granulation Amt Small (1-33%) None Present (0 Small (1-33%) %) -Granulation Quality Red [place] -Slough/Fibrin Yes Yes -Necrosis Amt Large (67-100%) Large (67-100%) Small (1-33%) -Necrotic Tissue Type Adherent Slough Adherent Slough Adherent Slough -Structure Exposed N/A -Texture (Liv-wound Skin Appearance) Assessed, Assessed, Scarring Scarring Scarring -Moisture (Liv-wound Skin Appearance) Assessed Assessed No Abnormality -Color (Liv-wound Skin Appearance) Assessed, Assessed, Hemosiderin Hemosiderin Hemosiderin Staining Staining Staining -Temperature (Liv-wound Skin No Abnormality No Abnormality No Abnormality Appearance) (Pt Warm) (Pt Warm) (Pt Warm) -Tenderness on Palpation (Liv-wound Yes No No Skin Appearance) -Ulcer Cleansing Rinsed/ Soap and Water Rinsed/ Irrigated with Irrigated with Saline Saline -Foul Odor after Cleansing No No No -Anesthetic Used 4% Lidocaine 4% Lidocaine 4% Lidocaine Solution Solution Solution #1- L MERIDA -Combined with other wound No No -Current Size (cm) - Length 2.4 2.6 0 -Current Size (cm) - Width 1.2 1.8 0 -Current Size (cm) - Depth 0.2 0.1 0 -Total Square Cm 2.88 4.68 0 -Date of Last Picture (Recall this 10/02/21 field) -Photo Taken No Yes Yes -Epithelialization None Present None Present -Tunneling No No -Undermining/Tunneling No No -Circular Undermining No No -Exudate Amt Medium None Present None Present -Exudate Type Serous -Wound Margin Distinct, Distinct, Flat & Intact Outline Outline Attached Attached -Granulation Amt Medium (34-66%) None Present (0 Large (67-100%) %) -Granulation Quality Red [place] -Slough/Fibrin Yes Yes -Necrosis Amt Medium (34-66%) Large (67-100%) None Present (0 %) -Necrotic Tissue Type Adherent Slough Adherent Slough -Structure Exposed N/A -Texture (Liv-wound Skin Appearance) Assessed, Assessed, Scarring Scarring Scarring -Moisture (Liv-wound Skin Appearance) Assessed Assessed,Dry/ No Abnormality Scaly -Color (Liv-wound Skin Appearance) Assessed, Assessed, Hemosiderin Hemosiderin Hemosiderin Staining Staining Staining -Temperature (Liv-wound Skin No Abnormality No Abnormality No Abnormality Appearance) (Pt Warm) (Pt Warm) (Pt Warm) -Tenderness on Palpation (Liv-wound Yes Yes No Skin Appearance) -Ulcer Cleansing Rinsed/ Soap and Water Rinsed/ Irrigated with Irrigated with Saline Saline -Foul Odor after Cleansing No No No -Anesthetic Used 4% Lidocaine 4% Lidocaine Solution Solution Lower Limb Edema Present Yes Yes Right Calf (cm) 46.3 40.9 42 Right Ankle (cm) 26.2 24.5 25 Left Calf (cm) 44.7 39.2 39 Left Ankle (cm) 26.6 24.9 25 WC - Nurse 2 - General Ulcer CM Notes Start: 09/11/21 11:07 Freq: Status: Active Protocol: Activity Type Activity Date Activity User E-Sign Co-Sign Detail Recorded Client Recorded Date Recorded By Document 09/11/21 11:37 [id number] 09/11/21 11:41 Document 10/02/21 12:02 [id number] 10/02/21 12:08 Document 10/16/21 11:44 [id number] 10/16/21 11:45 09/11/21 10/02/21 10/16/21 11:37 12:02 11:44 Wound Center Nurse 2 #2- R MERIDA -Time 11:37 12:03 -Correct Patient Yes Yes No -Correct Side, Site, Position Yes Yes No -Correct Procedure Yes Yes No -Procedure Performed Yes Yes No -Type of Procedure Debridement Debridement -Clinical Debridement Subcutaneous Subcutaneous -Tissue Removed Subcutaneous Subcutaneous -Post Debridement (cm) - Length 1.6 0.6 -Post Debridement (cm) - Width 1.6 0.1 -Post Debridement (cm) - Depth 0.1 0.1 -Total Square (Post) (cm) 2.56 0.06 -Area of Debridement (cm) - Length 1.6 0.6 -Area of Debridement (cm) - Width 1.6 0.1 -Total Square (Area) (cm) 2.56 0.06 -Tunneling No No -Undermining/Tunneling No No -Circular Undermining No No -Wound/Ulcer Outcome Not Healed Not Healed Not Healed -Ulcer Cleansing Rinsed/ Rinsed/ Irrigated with Irrigated with Saline Saline -Foul Odor after Cleansing No No -Bioengineered Tissue No No -Bleeding Controlled with Pressure Pressure -Treatment Response Procedure Procedure Tolerated Well Tolerated Well -Offloading No No -Debridement - Subq, 1st 20sq cm Yes Yes No #1- L MERIDA -Time 11:38 12:03 -Correct Patient Yes Yes No -Correct Side, Site, Position Yes Yes No -Correct Procedure Yes Yes No -Procedure Performed Yes Yes No -Type of Procedure Debridement Debridement -Clinical Debridement Subcutaneous Subcutaneous -Tissue Removed Subcutaneous Subcutaneous -Post Debridement (cm) - Length 2.5 0.1 0 -Post Debridement (cm) - Width 1.2 0.1 0 -Post Debridement (cm) - Depth 0.2 0.1 0 -Total Square (Post) (cm) 3.00 0.01 0 -Area of Debridement (cm) - Length 2.5 0.1 0 -Area of Debridement (cm) - Width 1.2 0.1 0 -Total Square (Area) (cm) 3.00 0.01 0 -Tunneling No No -Undermining/Tunneling No No -Circular Undermining No No -Wound/Ulcer Outcome Not Healed Not Healed Healed- Epithelialized -Ulcer Cleansing Rinsed/ Rinsed/ Irrigated with Irrigated with Saline Saline -Foul Odor after Cleansing No No -Bioengineered Tissue No No -Bleeding Controlled with Pressure Pressure -Treatment Response Procedure Procedure Tolerated Well Tolerated Well -Offloading No No -Debridement - Subq, 1st 20sq cm No No Pain Scale: 0-10 Numeric Is Patient Pain Free? Yes Yes Yes WC - Nurse 3 - General Ulcer D/C NN Start: 09/11/21 11:07 Freq: Status: Active Protocol: Activity Type Activity Date Activity User E-Sign Co-Sign Detail Recorded Client Recorded Date Recorded By Document 09/11/21 11:57 [facility] [id number] 09/11/21 11:59 [facility] Document 10/02/21 12:09 [id number] 10/02/21 12:09 Document 10/02/21 12:20 [facility] [id number] 10/02/21 12:21 [facility] 09/11/21 10/02/21 10/02/21 11:57 12:09 12:20 Wound Care Nurse 3 #2- R MERIDA -Ulcer Cleansing Rinsed/ Rinsed/ Rinsed/ Irrigated with Irrigated with Irrigated with Saline Saline Saline -Foul Odor after Cleansing No No No -Primary Dressing Applied Aquacel AG 4x4 C Hydrogel ($), C Hydrogel ($), NonAdherent NonAdherent Contact Layer Contact Layer -Other Dressing drsg per [place] international editorial producer drsg per [place] international editorial producer -Primary Dressing Covered/Secured with Dry Gauze & Dry Gauze & Dry Gauze & Roll Gauze, Roll Gauze, Roll Gauze, Secured with Secured with Secured with Tape Tape Tape -Aquacel AG 4x4 1 #1- L MERIDA -Ulcer Cleansing Rinsed/ Rinsed/ Rinsed/ Irrigated with Irrigated with Irrigated with Saline Saline Saline -Foul Odor after Cleansing No No No -Primary Dressing Applied Aquacel AG 4x4 C Hydrogel ($), NonAdherent NonAdherent Contact Layer, Contact Layer Other -Other Dressing hydrogel -Primary Dressing Covered/Secured with Dry Gauze & Dry Gauze & Dry Gauze & Roll Gauze, Roll Gauze, Roll Gauze, Secured with Secured with Secured with Tape Tape Tape -Other Covering drsg per [place] international editorial producer drsg per [place] international editorial producer -Aquacel AG 4x4 0 BLE -Lotion applied to leg before No compression wrap -Tubular Bandage Single Layer Single Layer -Size of Tubigrip Used Size F Size F -Size F ($) 2 1 -Other pts own single layer size f reapplied per [place] international editorial producer Treatment Response Procedure Procedure Tolerated Well Tolerated Well Pain Scale: 0-10 Numeric Is Patient Pain Free? Yes Yes Yes WC - Visit Discharge Discharge Condition Stable Stable Stable Ambulatory Status Wheelchair Ambulatory Wheelchair Transportation Private Auto Private Auto Private Auto Accompanied by daughter daughter Medication Reconcilliation completed & Yes provided to patient/care provider Clinical Summary of Care Provided Yes Assessment/Plan Assessment/Plan (1) Non-pressure chronic ulcer of left calf with fat layer exposed: CODE(S): L97.222 - Non-pressure chronic ulcer of left calf with fat layer exposed PLAN: Patient examined evaluated, all findings cussed with patient in detail. Stasis dermatitis improving with use of triamcinolone ointment and compression. Wounds to bilateral legs not debrided today. Left leg wound healed. Significantly improved right leg wound. Wound was cleansed with saline and dressed with hydrogel dry sterile dressing and Tubigrip bilateral lower extremity. I recommend increased compression level with a 2 layer compression wrap or an Unna boot; however, the patient defers. No evidence of DVT at this time. Patient will continue ambulation as tolerated. She will elevate her legs at rest. She will continue external compression. No indication for antibiotics at this time. She will follow up in 1 week and will continue local wound care. Consider any advanced wound care products if there are any delays in healing. (2) Non-pressure chronic ulcer of right calf with fat layer exposed: CODE(S): L97.212 - Non-pressure chronic ulcer of right calf with fat layer exposed
== END 2021-10-16 23:59 | disposition home or self-care (01) ==
LOC: WC 11:15
PROVIDERS: PCP Internal Medicine; Referring Provider Podiatrist; Visit Provider Podiatrist
DX: L97.222 Non-pressure chronic ulcer of left calf with fat layer exposed (principal); L97.212 Non-pressure chronic ulcer of right calf with fat layer exposed; R60.9 Edema, unspecified; M79.89 Other specified soft tissue disorders
CPT/HCPCS: 11042; 93970; 99213; G0463

== ENCOUNTER 2021-10-23 11:01 | Outpatient (RCR) | payer OTHER, SELFPAY ==
[2021-10-17 00:07] VITALS: BP 181/92; PULSE 84; RESP 20; TEMP 36.5; BMI 38.7
[2021-10-23 11:12] VITALS: BP 148/72; RESP 16; TEMP 35.9; BMI 38.7
--- NOTE | 2021-10-23 12:24 | PCM.WC.PN ---
History of Present Illness Date of Service: 10/23/21 Progress of Wound: 79-year-old female presents to clinic with bilateral leg swelling and for follow-up on full-thickness ulcerations. Her left side was healed on her previous visit she notes she feels the right side is healed. She notes improvement of her skin redness with use of triamcinolone ointment. No other complaints. Patient notes she has had these ulcerations for greater than 6 months and dealt with them all summer she worked. She suffered a compression fractures and her spine. She is recovering from kyphoplasty at this time. Patient notes improvement in her wounds and to the pain associated with her wounds. Patient has no new complaints at this time and denies any constitutional symptoms. Objective Data Objective Data Vital Signs: Vital Signs Temp Pulse Resp BP 96.7 F L 84 16 148/72 H 10/23/21 11:12 10/17/21 00:07 10/23/21 11:12 10/23/21 11:12 Oxygen Delivery Method Room Air Weight: 92.986 kg Body Mass Index (BMI) 38.7 Physical Exam Narrative Patient alert oriented to person place and time. Patient ambulates with a walker very slowly due to recent spine surgery. Vascular: Dorsalis pedis posterior tibial pulses palpable 2 out of 4 to bilateral lower extremity. +2 pitting edema noted perimalleoli region bilaterally. No evidence of varicosities. Neurologic: Light touch protective sensation intact to bilateral lower extremity. Dermatologic: Full-thickness ulceration noted to the anterior mid tibia to bilateral lower extremity. These wounds have no evidence of deep probing or undermining. There is significant periwound erythema and tenderness. No evidence of purulent drainage. Severe serous drainage noted. No other signs of infection. These wounds are significantly improved at this time. Musculoskeletal: Positive pain with palpation of popliteal fossa and calf squeeze noted bilaterally. No gross deformity noted. Muscular strength 5 out of 5 to bilateral lower extremity compartments. Debridement Note Debridement Note Post-Debridement Measurements and Additional Note: Post-Debridement Measurements/Treatment MACIEJ - Nurse 1 - General Ulcer Assessment Start: 10/23/21 11:12 Freq: Status: Active Protocol: MACIEJ.LOWEXT Activity Type Activity Date Activity User E-Sign Co-Sign Detail Recorded Client Recorded Date Recorded By Document 10/23/21 11:12 [facility] [id number] 10/23/21 11:22 [facility] 10/23/21 11:12 WC - Today's Visit Information Type of service Follow-up Visit (Physician/CHECK CLERK ) Arrival Mode Wheelchair Transfer Assistance Other Transfer Assist (Other) 2 STAND BY Accompanied by DAUGHTER Patient Identification Verified (Name & Yes ) Patient Requires Transmission-Based No Precautions Height and Weight Body Mass Index (BMI) 38.7 BMI Classification Obese Vital Signs Temperature (97.8 F-99.1 F) 96.7 F L Temperature Source Temporal Respiratory Rate (12-18) 16 Respiratory rate source Observation Oxygen Delivery Method Room Air Blood Pressure (90/60-120/80) 148/72 H Blood Pressure Mean (mm Hg) 97 Source Monitor Position Sitting Blood Pressure Location Right Forearm History Since Last Visit- (Skip if this is Patient's initial visit) Have you changed medications since your No last visit? Any new allergies or adverse reactions No Had a fall/change in ADL's that may No increase risk of falls Signs or symptoms of abuse and/or No neglect since last visit Have you been in the hospital since your No last visit? Has dressing in place as prescribed Yes Has compression in place as prescribed Yes Has offloadiing in place as prescribed N/A Experienced any changes in pain level or No management Left Footwear Slipper Right Footwear Slipper Pain Scale: 0-10 Numeric Is Patient Pain Free? Yes - Nurse 1 - General Ulcer Measurement Start: 10/23/21 11:12 Freq: Status: Active Protocol: Activity Type Activity Date Activity User E-Sign Co-Sign Detail Recorded Client Recorded Date Recorded By Document 10/23/21 11:12 [facility] [id number] 10/23/21 11:22 [facility] 10/23/21 11:12 Wound Center Nurse 1 #2- R MERIDA -Combined with other wound No -Current Size (cm) - Length 0 -Current Size (cm) - Width 0 -Current Size (cm) - Depth 0 -Total Square Cm 0 -Epithelialization Large 67-100% -Tunneling No -Undermining/Tunneling No -Circular Undermining No -Texture (Liv-wound Skin Appearance) Assessed, Scarring -Moisture (Liv-wound Skin Appearance) Assessed -Color (Liv-wound Skin Appearance) Assessed -Temperature (Liv-wound Skin No Abnormality Appearance) (Pt Warm) -Tenderness on Palpation (Liv-wound No Skin Appearance) -Ulcer Cleansing Rinsed/ Irrigated with Saline -Foul Odor after Cleansing No -Anesthetic Used 5% Lidocaine Gel Lower Limb Edema Present Yes Right Calf (cm) 42.4 Right Ankle (cm) 25 Left Calf (cm) 40.7 Left Ankle (cm) 25.1 - Nurse 2 - General Ulcer CM Notes Start: 10/23/21 11:12 Freq: Status: Active Protocol: Activity Type Activity Date Activity User E-Sign Co-Sign Detail Recorded Client Recorded Date Recorded By Document 10/23/21 11:44 [id number] 10/23/21 11:44 10/23/21 11:44 Wound Center Nurse 2 #2- R MERIDA -Correct Patient No -Correct Side, Site, Position No -Correct Procedure No -Procedure Performed No -Post Debridement (cm) - Length 0 -Post Debridement (cm) - Width 0 -Post Debridement (cm) - Depth 0 -Total Square (Post) (cm) 0 -Area of Debridement (cm) - Length 0 -Area of Debridement (cm) - Width 0 -Total Square (Area) (cm) 0 -Wound/Ulcer Outcome Healed- Epithelialized Pain Scale: 0-10 Numeric Is Patient Pain Free? Yes - Nurse 3 - General Ulcer D/C NN Start: 10/23/21 11:12 Freq: Status: Active Protocol: Activity Type Activity Date Activity User E-Sign Co-Sign Detail Recorded Client Recorded Date Recorded By Document 10/23/21 11:53 JESSE [id number] 10/23/21 11:54 JESSE 10/23/21 11:53 Wound Care Nurse 3 Right -Tubular Bandage Single Layer -Size of Tubigrip Used Size E -Size E ($) 1 Left -Tubular Bandage Single Layer -Size of Tubigrip Used Size E -Size E ($) 1 Pain Scale: 0-10 Numeric Is Patient Pain Free? Yes - Visit Discharge Ambulatory Status Ambulatory, Walker Transportation Private Auto Accompanied by daughter Assessment/Plan Assessment/Plan (1) Non-pressure chronic ulcer of right calf with fat layer exposed: CODE(S): L97.212 - Non-pressure chronic ulcer of right calf with fat layer exposed (2) Lymphedema: CODE(S): I89.0 - Lymphedema, not elsewhere classified PLAN: Patient examined evaluated, all findings cussed with patient in detail. Reviewed previous lab work and echocardiogram. Patient has uncontrolled bilateral lower extremity edema secondary to lymphedema. Wounds are healed at this time. I recommend continued compression exercise and elevation for edema management. I ordered knee-high compression stockings 20 to 30 mmHg with zippers. Patient will follow up in our office in 9 weeks at which time we will prefer home perform routine nail care as patient has significant peripheral vascular disease and inability to trim her nails due to length and thickness.
== END 2021-10-23 14:11 | disposition home or self-care (01) ==
LOC: WC 11:01
PROVIDERS: PCP Internal Medicine; Referring Provider Podiatrist; Visit Provider Podiatrist
DX: L97.212 Non-pressure chronic ulcer of right calf with fat layer exposed (principal); M79.89 Other specified soft tissue disorders; I89.0 Lymphedema, not elsewhere classified; Z79.899 Other long term (current) drug therapy
CPT/HCPCS: 99213; G0463

== ENCOUNTER → 2021-12-03 | Outpatient (CLI) | payer OTHER, SELFPAY ==
[2021-12-03 18:08] LABS: Amphetamine Urine VISTA NEGATIVE (<1000 ng/mL); Barbiturate Urine VISTA NEGATIVE (< 200 ng/mL); Benzodiazepine Urine VISTA NEGATIVE (< 200 ng/mL); Cocaine Urine VISTA NEGATIVE (< 300 ng/mL); Ecstacy Urine VISTA NEGATIVE (< 500 ng/mL); Methadone Urine VISTA NEGATIVE (< 300 ng/mL); PCP Urine VISTA NEGATIVE (< 25 ng/mL); THC Urine VISTA NEGATIVE (< 50 ng/mL); Vista UDS pH Range 4
== END | disposition home or self-care (01) ==
LOC: LAB 17:26
PROVIDERS: PCP Internal Medicine; Referring Provider Anesthesiology Pain Medicine; Visit Provider Anesthesiology Pain Medicine
DX: F11.20 Opioid dependence, uncomplicated (principal)
CPT/HCPCS: 80307

== ENCOUNTER → 2022-06-24 | Outpatient (CLI) | payer OTHER, SELFPAY ==
[2022-06-24 16:06] LABS: Absolute Lymphocyte Count 2.54 X10^3/uL (0.83-4.51); Absolute Neutrophil Count 3.8 X10^3/uL (2.0-7.7); Basophil# 0.06 X10^3/uL; Basophil% 0.8 % (0-1); Eosinophil# 0.16 X10^3/uL; Eosinophils% 2.2 % (0-5); Hematocrit 39.3 % (37-47); Hemoglobin 12.9 g/dL (12.0-15.0); Lymphocyte # 2.54 X10^3/ul (0.83-4.51); Mean Corp Hgb Conc 32.8 g/dL (32-36); Mean Corpuscular Hgb 27.8 pg (27.0-32.0); Mean Corpuscular Volume 84.7 fL (81-99); Mean Platelet Vol. 9.6 fl (6.2-12.0); Monocyte# 0.66 X10^3/uL; Monocyte% 9.1 % (0-10); NRBC Flagged by Analyzer 0 % (0-5); Neutrophil # 3.82 X10^3/uL (2.7-7.7); Neutrophil % 52.6 % (47-70); Platelet Count 253 K/mm3 (150-450); RBC Distribution Width CV 14.3 % (11.6-14.6); RBC Distribution Width SD 43.7 fl (35.1-43.9); Red Blood Count 4.64 M/mm3 (4.2-5.4); White Blood Count 7.3 K/mm3 (4.4-11.0)
[2022-06-24 17:01] LABS: Vitamin B12 1829 pg/mL (211-911); Vitamin D,25 Hydroxy 60.4 ng/mL
[2022-06-24 17:11] LABS: AST(SGOT) 35 U/L (15-37); Alanine Aminotransfer ALT/SGPT 50 U/L (13-56); Albumin, Serum 3.9 g/dL (3.2-5.0); Alkaline Phosphatase 66 U/L (45-117); Anion Gap 5 (5-15); BUN 17 mg/dL (7-18); BUN/Creat Ratio 21.3 RATIO (10-20); Calcium,Total 9.8 mg/dL (8.5-10.1); Chloride 107 mmol/L (98-107); EST Glomerular Filtration Rate 76 mL/min (>60); Est Glom Filt Rate - Afr Amer 91 mL/min (>60); Glucose 92 mg/dL (74-106); Potassium 3.8 mmol/L (3.5-5.1); Protein, Total 7.9 g/dL (6.4-8.2); Sodium Level 140 mmol/L (136-145)
[2022-06-24 17:17] LABS: Amphetamine Urine VISTA NEGATIVE (<1000 ng/mL); Barbiturate Urine VISTA NEGATIVE (< 200 ng/mL); Benzodiazepine Urine VISTA NEGATIVE (< 200 ng/mL); Cocaine Urine VISTA NEGATIVE (< 300 ng/mL); Ecstacy Urine VISTA NEGATIVE (< 500 ng/mL); Methadone Urine VISTA NEGATIVE (< 300 ng/mL); PCP Urine VISTA NEGATIVE (< 25 ng/mL); THC Urine VISTA NEGATIVE (< 50 ng/mL); Vista UDS pH Range 6
== END | disposition home or self-care (01) ==
PROVIDERS: PCP Internal Medicine; Referring Provider Internal Medicine; Visit Provider Internal Medicine
DX: F11.20 Opioid dependence, uncomplicated (principal); E55.9 Vitamin D deficiency, unspecified; R10.9 Unspecified abdominal pain
CPT/HCPCS: 36415; 80053; 80307; 82306; 82607; 85025

== ENCOUNTER → 2022-07-04 | Outpatient (CLI) | payer OTHER, SELFPAY ==
--- NOTE | 2022-07-04 08:59 | US_ITS ---
STUDY: ABDOMINAL ULTRASOUND - RIGHT UPPER QUADRANT REASON FOR VISIT: Female, 72 years old abdominal pain TECHNIQUE: Ultrasound evaluation of the right upper quadrant was performed with real-time and static montoya-scale imaging. TECHNICAL QUALITY: Limited. Examination limited by bowel gas. COMPARISON: Comparison is made with prior CT scan of the abdomen and pelvis dated 05/30/2021. FINDINGS: Liver: The liver measures 14.1 cm. There is normal echogenicity of the liver. The bile ducts are within normal limits. There is hepatic color flow. The direction of portal flow is hepatopetal. There is no demonstrated mass lesion. Gallbladder: Normal distended gallbladder. The gallbladder wall measures 2.9 mm. There is a negative sonographic Hoang''s sign. There is no pericholecystic fluid. There is a solitary echogenic gallstone within the gallbladder. Common Bile Duct (C.B.D.): The common bile duct measures 4.5 mm. Pancreas: There is nonvisualization of the pancreas due to overlying bowel gas. Right Kidney: Normal size of the right kidney. The right kidney measures 9.5 cm x 4.5 cm x 4.1 cm. Normal renal cortex. The right cortex measures 1.3 cm. There is no demonstrated renal mass or cyst. There is no right hydronephrosis. US/Gallbladder IMPRESSION: Fine suggestively solitary gallstone. Electronically Signed: Adarsh Gutierrez MD at 15:43 EST ,
== END | disposition home or self-care (01) ==
LOC: US 08:59
PROVIDERS: PCP Internal Medicine; Referring Provider Internal Medicine; Visit Provider Internal Medicine
DX: R10.9 Unspecified abdominal pain (principal)
CPT/HCPCS: 76705

== ENCOUNTER 2022-07-08 11:00 | Outpatient (RCR) | payer OTHER, SELFPAY ==
[2022-07-01 13:18] VITALS: BP 200/103; PULSE 87; RESP 18; TEMP 36.4; BMI 40.7
--- NOTE | 2022-07-01 15:00 | HP.PCM_ITS ---
History of Present Illness Date of Service: 07/01/22 Chief Complaint: Bilateral lower leg swelling History of Wound: 72 year old female presents at the wound healing center for evaluation of her bilateral lower extremity edema and pain. She has a history of edema and she states she has not been wearing her compression because it has been painful. She currently does not have any wounds. She has a history of being seen at the wound center spring 2021 for ulcerations and edema to her bilateral lower extremities. She also has a history of back pain with sciatica and had a kyphoplasty. She sees pain management for her back pain. She has difficulty walking and uses a wheelchair when needing to walk long distances. She sleeps in a recliner because she has a water bed that she is can not get in and out of because of her bad back. She does not have a couch to be able to lay flat. She had a venous doppler on 10/04/22 which show the left sapheno-femoral junction is incompetent . Segmental valvular incompetence is noted within the great saphenous veins bilaterally. Accessory saphenous veins in the left proximal and distal thigh are incompetent. Progress of Wound: She has no wounds. She has +4 pitting edema/lymphedema. She has staining on her legs and has thick plaques on the anterior portion of her legs. Her legs are very painful to light palpation and she doesn't tolerated the removing of the plaques at all. [facility] Medical History History of fracture Lymphedema Home Medications B COMPLEX 2 tab PO DAILY 05/28/21 [History Last Taken Unknown] COMPLETE PROBIOTICS 1 cap PO DAILY 05/28/21 [History Last Taken Unknown] EYE SUPPORT 1 tab PO DAILY 05/28/21 [History Last Taken Unknown] FERMENTED TUMERIC 1 tab PO BID 05/28/21 [History Last Taken Unknown] FERMENTED MUSHROOM 3 tab PO/SL TID 05/28/21 [History Last Taken Unknown] IODINE 1,500 mg PO DAILY 05/28/21 [History Last Taken Unknown] JOINT FORMULA 1 tab PO DAILY 05/28/21 [History Last Taken Unknown] LIPSOMAL 1,000 mg PO BID 05/28/21 [History Last Taken Unknown] ORANIC FERMENTED BEETS 2 tab PO DAILY 05/28/21 [History Last Taken Unknown] ORGANIC COLLAGEN 3 tab PO DAILY 05/28/21 [History Last Taken Unknown] QUERCETIN AND PTEROSTILBENE 1 tab PO BID 05/28/21 [History Last Taken Unknown] SUPER LYSINE 3 tab PO DAILY 05/28/21 [History Last Taken Unknown] TRACE MINERAL 1 - 2 tab PO DAILY 05/28/21 [History Last Taken Unknown] UBIQUINOL 150 mg PO DAILY 05/28/21 [History Last Taken Unknown] VITAMIN D3 AND K2 1 tab PO DAILY 05/28/21 [History Last Taken Unknown] VITAMIN E 134 mg PO DAILY 05/28/21 [History Last Taken Unknown] WHOLE FOOD VITAMIN PO DAILY 05/28/21 [History Last Taken Unknown] ZINC AND SELENIUM 1 tab PO DAILY 05/28/21 [History Last Taken Unknown] Beta Glucans 1 - 2 cap PO/SL DAILY 09/11/21 [History Last Taken Unknown] Bone Support 2 cap PO/SL DAILY 09/11/21 [History Last Taken Unknown] C-Zn-K.ginseng-cecilia hips-hrb62 75 mg tablet (Immune Support Complex) 3 tab PO DAILY 09/11/21 [History Last Taken Unknown] acetylcyst 200 mg-lipoic 200 mg-milk thistle 262.5 mg-selenom capsule 2 cap PO DAILY 09/11/21 [History Last Taken Unknown] astaxanthin 4 mg capsule 12 mg PO DAILY 09/11/21 [History Last Taken Unknown] calcium carbonate 600 mg-vitamin D3 5 mcg (200 unit) tablet 1 tab PO DAILY 09/11/21 [History Last Taken Unknown] digestive enzymes 1 cap PO DAILY 09/11/21 [History Last Taken Unknown] krill prz-vb4-vfu-ofb-ku3-lmf-astax 1,500 mg-165 mg-67.5 mg capsule (Krill Oil ([place] 3 and 6)) 2 cap PO DAILY 09/11/21 [History Last Taken Unknown] magnesium 42 mg(magnesium L-threo 500 mg)-niacinamide 250 mg tablet,ER 3 tab PO DAILY 09/11/21 [History Last Taken Unknown] diazepam 5 mg tablet (Valium) 5 mg PO ONCE Take 1 tablet 1 hour prior to study #1 TAB 06/24/22 [Rx Last Taken Unknown] hydrocodone-acetaminophen 5-325mg 5mg-325mg tab 07/01/22 [History Last Taken Unknown] doxycycline monohydrate 100 mg tablet 100 mg PO BID 14 days #28 tabs 07/02/22 [Rx Last Taken Unknown] Allergy/AdvReac Type Severity Reaction Status Date / Time cephalexin [From Keflex] Allergy Intermediate Nausea Verified 06/24/22 14:08 tizanidine AdvReac Intermediate Other Verified 06/24/22 14:09 Family History (Reviewed 07/03/22 @ 10:31 by Mei Gutiérrez SYSTEMS MANAGEMENT CONSULTANT, SYSTEMS MANAGEMENT CONSULTANT-C) Mother Arthritis Bowel disease Cervical cancer Depression Diabetes Myocardial infarction Heart disease Grandmother Colon cancer Father Diabetes Myocardial infarction Brother Thyroid disorder Sister Thyroid disorder Surgical History H/O kyphoplasty History of cholecystectomy Social History Smoking Status: Never smoker alcohol intake: never substance use type: does not use what type of physical activity do you participate in: walking ROS Constitutional Constitutional: Denies chills, fever(s) or frequent falls Eyes Eyes: Reports none ENT HEENT: Reports none Cardiovascular Cardiovascular: Reports pedal edema; Denies chest pain or dyspnea Respiratory/Chest Respiratory/Chest: Denies cough or dyspnea Gastrointestinal Gastrointestinal: Reports systems reviewed and no addt'l complaints, except as documented Musculoskeletal Musculoskeletal: Reports back pain, extremity pain, limited range of motion, numbness and tingling Integumentary Integumentary: Reports erythema; Denies skin ulcer Neurologic Neurologic: Reports abnormal gait and numbness Psychiatric Psychiatric: Reports systems reviewed and no addt'l complaints, except as documented Vital Signs Vital Signs Vital Signs: 07/01/22 13:18 Temperature 97.6 F L Temperature Source Temporal Pulse Rate 87 Respiratory Rate 18 Blood Pressure 200/103 H Blood Pressure Mean 135 Blood Pressure Source Monitor Weight Weight: 230 lb 1.011 oz Body Mass Index (BMI) 40.7 Physical Exam Const alert, oriented x3 and well nourished General Appearance: uncooperative Orientation / Consciousness: awake Exam Limitations: behavioral limitations HEENT normocephalic Eyes General Eye: normal appearance of both eyes Neck General: normal visual inspection Lymph Lymphatic: lymphedema moderate Lymphatic Narrative: Bilateral lower extremity edema/lymphedema Resp normal respiratory effort, normal air movement and clear to auscultation bilaterally Effort and Inspection: able to speak in complete sentences Cardio regular rate and regular rhythm GI normal to inspection, nondistended, normoactive bowel sounds Back/Spine Thoracic Spine / Upper Back: ROM limited Lumbar Spine / Lower Back: ROM limited and pain with ROM Extremity Extremity Narrative: Bilateral pedal pulses +2. +4 pitting edema/lymphedema bilateral lower extremities. She has brown discoloration of her legs bilaterally with thick plaques of skin. She also has erythema and warmth of her anterior legs bilatera lly. She is extremely painful to light palpation. Skin no wounds Skin Narrative: Hemosiderin staining of bilateral legs with thick skin plaques on anterior portion of bilateral lower legs. Erythema of lower legs with warmth to palpation and pain with palpation. Neuro oriented x3 Speech: speech normal Psych mental status grossly normal and speech normal Attitude: uncooperative Debridement Note Debridement Note No debridement was completed: No debridement was completed today Post-Debridement Measurements and Additional Note: Post-Debridement Measurements/Treatment - Nurse 1 - General Ulcer Assessment Start: 07/01/22 13:07 Freq: Status: Active Protocol: RAMAN Activity Type Activity Date Activity User E-sign Co-sign Detail Recorded Client Recorded Date Recorded By Document 07/01/22 13:18 DL [id number] 07/01/22 13:52 DL 07/01/22 13:18 WC - Today's Visit Information Type of service Initial Visit Arrival Mode Wheelchair Transfer Assistance Manual Transfer Assist (Other) x1 Patient Identification Verified (Name & Yes ) Patient Requires Transmission-Based No Precautions Height and Weight Height 5 ft 3 in Weight 230 lb 1.011 oz Weight in Pounds 230.1 lbs Body Mass Index (BMI) 40.7 BMI Classification Obese BSA - Keisha 2.05 Vital Signs Temperature (97.8 F-99.1 F) 97.6 F L Temperature Source Temporal Pulse Rate (60-100) 87 Pulse Location Monitor Respiratory Rate (12-18) 18 Respiratory rate source Observation Blood Pressure (90/60-120/80) 200/103 H Blood Pressure Mean 135 Source Monitor History Since Last Visit- (Skip if this is Patient's initial visit) Left Footwear Slipper Right Footwear Slipper Pain Scale: 0-10 Numeric Is Patient Pain Free? Yes Lower Extremity Assessment/ Foot Assessment/ Toe Nail Assessment Left -Posterior Tibial Doppler Multiphasic -Dorsalis Pedis Palpable No -Dorsalis Pedis Doppler Multiphasic -Extremity Color Hyperpigmented, Hemosiderin -Hair Growth on Legs No -Hair Growth on Toes No -Temperature of Extremity Hot -Capillary Refill Greater than 3 Seconds -Dependent Rubor No -Blanched when Elevated No -Lipodermatosclerosis No -Other Deformity No -Prior Foot Ulcer No -Charcot Joint No -Prior Amputation No -Thick Yes -Discolored Yes -Deformed No -Improper Length & Hygeine No Right -Popliteal Doppler Multiphasic -Posterior Tibial Palpable No -Posterior Tibial Doppler Multiphasic -Dorsalis Pedis Palpable No -Extremity Color Hyperpigmented, Hemosiderin -Hair Growth on Legs No -Hair Growth on Toes No -Temperature of Extremity Hot -Capillary Refill Greater than 3 Seconds -Dependent Rubor No -Blanched when Elevated No -Lipodermatosclerosis No -Other Deformity No -Prior Foot Ulcer No -Charcot Joint No -Prior Amputation No -Thick Yes -Discolored Yes -Deformed No -Improper Length & Hygeine No Neuropathy Assessment Feet - Top Side and Bottom <Entered> (a) Communication Assessment Preferred language [place] Able to Read Yes Able to Write Yes Communication Tools None Right Hearing Abillity Normal Left Hearing Abillity Normal Visual Assistive Devices Glasses Teaching Assessment Preferences Verbal,Written, Demonstration Barriers to Learning None Readiness To Learn Fair Willingness to Engage in Self Management Med Activies Readiness to Engage in Self Management Med Activities Anxiety Level Anxious Cooperation Cooperative Perception Coherent Interest in Health Problem Asks Questions Education Importance Acknowledges Need Does Patient Smoke tobacco or other No substances Smoking Status Never smoker Is Patient Diabetic No Functional Assessment Recent Decline in Ability to Perform Denies Any Declines Culture/Mu-Ism/Director Of Mobile Marketing Cultural/Mu-Ism Needs that may affect No Treatment Plan Would you allow our hospital supervisor pit and auxiliaries to No meet you for the purpose of spiritual/ emotional support? Director Of Mobile Marketing to contact place of rastafari No Teaching: Wound Center Control Swelling with Leg Elevation -Person Taught Patient *Venous -Person Taught Patient Skin Care -Person Taught Patient *Welcome to the Wound Center -Person Taught Patient (a) 1 - + WC - Nurse 1 - General Ulcer Measurement Start: 07/01/22 13:07 Freq: Status: Active Protocol: Activity Type Activity Date Activity User E-sign Co-sign Detail Recorded Client Recorded Date Recorded By Document 07/01/22 13:18 DL [id number] 07/01/22 13:52 DL 07/01/22 13:18 Wound Center Nurse 1 ELIAN Edema -Photo Taken Yes Right Calf (cm) 44.5 Right Ankle (cm) 24.5 Left Calf (cm) 44 Left Ankle (cm) 262 WC - Nurse 2 - General Ulcer CM Notes Start: 07/01/22 13:07 Freq: Status: Active Protocol: Activity Type Activity Date Activity User E-sign Co-sign Detail Recorded Client Recorded Date Recorded By Document 07/01/22 14:11 JF [id number] 07/01/22 14:12 JF 07/01/22 14:11 Pain Scale: 0-10 Numeric Is Patient Pain Free? Yes - Nurse 3 - General Ulcer D/C NN Start: 07/01/22 13:07 Freq: Status: Active Protocol: Activity Type Activity Date Activity User E-sign Co-sign Detail Recorded Client Recorded Date Recorded By Document 07/01/22 14:48 DL [id number] 07/01/22 14:50 DL Edit Result 07/01/22 14:48 DL (1) [id number] 07/01/22 14:50 DL (1) Notes: => Dressing applied per A.Knowelton today in clinic. 07/01/22 14:48 Wound Care Center Nurse 3 elian -Multi-Layered Wrap Application Multi-Layer Comp - Bilat ($ ) Treatment Response Procedure Tolerated Well Pain Scale: 0-10 Numeric Is Patient Pain Free? Yes - Visit Discharge Discharge Condition Stable Ambulatory Status Wheelchair Transportation Private Auto Accompanied by daughter Notes: Dressing applied per A. Knowelton today in clinic. Charges/Coding Visit Charges Office Visits / Consults: [id number] OV L4 Est Assessment/Plan Assessment/Plan (1) Cellulitis of left anterior lower leg: CODE(S): L03.116 - Cellulitis of left lower limb (2) Cellulitis of right anterior lower leg: CODE(S): L03.115 - Cellulitis of right lower limb (3) Edema of both lower legs due to peripheral venous insufficiency: CODE(S): I87.2 - Venous insufficiency (chronic) (peripheral); R60.0 - Localized edema (4) Lymphedema: CODE(S): I89.0 - Lymphedema, not elsewhere classified (5) Pain in both lower extremities: CODE(S): M79.604 - Pain in right leg; M79.605 - Pain in left leg PLAN: Plan Patient evaluated at the wound healing center for her bilateral lower extremity edema/lymphedema. Will start her on Doxycycline for her bilateral leg cellulitis. Gave her detailed instruction how to take the medication to help prevent it from upsetting her stomach. Had a lengthy discussion about her sleeping in a chair because that is contributing to her edema/lymphedema. She states she has no other place to sleep because she is is not able to get in and out of her water bed. Patient's daughter states that her mother refuses to get rid of the water bed even though she has not slept in a bed in over a year due to her back issues and pain. Suggested that patient lay on couch to help straighten legs out, but she does not have a couch. With further discussion, the patient's daughter states that her father has issues getting in and out of the water bed also. Patient does not like the discussion of getting a different bed so she would be able to sleep in a bed. Had a lengthy discussion about compression which the patient states she is not able to tolerate compression because it hurts too much. Attempted to educate patient on having moderate to severe edema/lymphedema is painful and if no compression is worn it will continue to get worse and then she will end up with weeping skin. Discussed different options for compression. She is not able to get her compression stockings on by herself and now it is too painful to wear compression. Reinforced that getting her edema under control is very important. Suggested 3M 2 layer wraps but she doesn't like not being able to shower. Suggested either sponge bathing or getting shower boots/cast covers to place over the 3M wraps but she states she is not able to put them and she doesn't like the idea of not showering. Patient and her daughter finally decided to try the 3M 2 layer wraps for compression with the understanding that if they are too painful, they can be removed. If they are removed, then she should wear an RANJAN wrap for compresion. With the patient being unwilling to try any of my suggestions, I did state that her coming to the wound center was her choice and I am trying to help her with her current issues of edema/lymphedema and pain. She has venous insufficiency from her vascular studies last September. Will refer her to Dr. Schuler for further evaluation. She should follow up on or Friday for a nurses visit to change her 3M 2 layer wraps and to see how she is tolerating them. Follow up one week to see me. Greater than 39 minutes spent evaluating, educating patient and discussing plan of care and documenting. Reviewed previous records.
[2022-07-04 11:19] VITALS: TEMP 35.8; BMI 40.7
[2022-07-08 11:09] VITALS: BP 223/83; PULSE 83; RESP 22; TEMP 36.3; BMI 40.7
--- NOTE | 2022-07-08 12:00 | PCM.WC.PN ---
History of Present Illness Date of Service: 07/08/22 Chief Complaint: Bilateral lower leg swelling History of Wound: 72 year old female presents at the wound healing center for evaluation of her bilateral lower extremity edema and pain. She has a history of edema and she states she has not been wearing her compression because it has been painful. She currently does not have any wounds. She has a history of being seen at the wound center spring 2021 for ulcerations and edema to her bilateral lower extremities. She also has a history of back pain with sciatica and had a kyphoplasty. She sees pain management for her back pain. She has difficulty walking and uses a wheelchair when needing to walk long distances. She sleeps in a recliner because she has a water bed that she is can not get in and out of because of her bad back. She does not have a couch to be able to lay flat. She had a venous doppler on 10/04/22 which show the left sapheno-femoral junction is incompetent . Segmental valvular incompetence is noted within the great saphenous veins bilaterally. Accessory saphenous veins in the left proximal and distal thigh are incompetent. Progress of Wound: She has no wounds. Her edema is slightly improved today. She has tolerated the 3M 2 layer wraps this week. She did remove them today to shower and she has not worn any compression since then, therefore she does have more swelling than she before she took her wraps off. She has +2 - +3 pitting edema/lymphedema. The thick plaques on the anterior portion of her legs have improved this week with the compression and her legs are not as painful as they were last week and she is not as erythematous. She states that the antibiotic is making her sore in her groin and she is using a cream that her PCP gave her to help with that. She is scheduled for a Hida scan after her appointment today due to having a lot of upper right quadrant pain. Objective Data Objective Data Vital Signs: Vital Signs Temp Pulse Resp BP 97.3 F L 83 22 H 223/83 H 07/08/22 11:09 07/08/22 11:09 07/08/22 11:09 07/08/22 11:09 Weight: 230 lb 1.011 oz Body Mass Index (BMI) 40.7 Charges/Coding Visit Charges Office Visits / Consults: 46666 OV L3 Est Physical Exam Const alert, oriented x3 and well nourished Constitutional Narrative: Better mood this week. Orientation / Consciousness: awake HEENT normocephalic Eyes General Eye: normal appearance of both eyes Lymph Lymphatic: lymphedema moderate Lymphatic Narrative: Bilateral lower extremity edema/lymphedema Resp normal respiratory effort, normal air movement and clear to auscultation bilaterally Effort and Inspection: able to speak in complete sentences Cardio regular rate and regular rhythm Back/Spine Thoracic Spine / Upper Back: ROM limited Lumbar Spine / Lower Back: ROM limited and pain with ROM Extremity Extremity Narrative: Bilateral pedal pulses +2. +2-+3 pitting edema/lymphedema bilateral lower extremities. She has brown discoloration of her legs bilaterally. The thick plaques of skin are improving with the compression. The erythema and warmth have resolved. Skin no wounds Skin Narrative: Hemosiderin staining of bilateral legs Neuro oriented x3 Speech: speech normal Psych mental status grossly normal and speech normal Debridement Note Debridement Note No debridement was completed: No debridement was completed today Post-Debridement Measurements and Additional Note: Post-Debridement Measurements/Treatment - Nurse 1 - General Ulcer Assessment Start: 07/01/22 13:07 Freq: Status: Active Protocol: WC.LOWNATHANT Activity Type Activity Date Activity User E-sign Co-sign Detail Recorded Client Recorded Date Recorded By Document 07/01/22 13:18 [id number] 07/01/22 13:52 DL Document 07/04/22 11:19 [id number] 07/04/22 11:20 Document 07/08/22 11:09 DL [id number] 07/08/22 11:19 DL 07/01/22 07/04/22 07/08/22 13:18 11:19 11:09 - Today's Visit Information Type of service Initial Visit Nurse-only Follow-up Visit Visit (Physician/[employer] ) Arrival Mode Wheelchair Wheelchair Wheelchair Transfer Assistance Manual Manual Manual Transfer Assist (Other) x1 x2 Accompanied by Patient Identification Verified (Name & Yes Yes Yes ) Patient Requires Transmission-Based No No No Precautions Height and Weight Height 5 ft 3 in Weight 230 lb 1.011 oz Weight in Pounds 230.1 lbs Body Mass Index (BMI) 40.7 40.7 40.7 BMI Classification Obese Obese Obese BSA - Keisha 2.05 Vital Signs Temperature (97.8 F-99.1 F) 97.6 F L 96.5 F L 97.3 F L Temperature Source Temporal Temporal Temporal Pulse Rate (60-100) 87 83 Pulse Location Monitor Monitor Respiratory Rate (12-18) 18 22 H Respiratory rate source Observation Observation Blood Pressure (90/60-120/80) 200/103 H 223/83 H Blood Pressure Mean (mm Hg) 135 129 Source Monitor Monitor Comment States, removed 3M last night to shower History Since Last Visit- (Skip if this is Patient's initial visit) Have you changed medications since your No last visit? Any new allergies or adverse reactions No Had a fall/change in ADL's that may No increase risk of falls Signs or symptoms of abuse and/or No neglect since last visit Have you been in the hospital since your No last visit? Has dressing in place as prescribed Yes Has compression in place as prescribed No Has offloadiing in place as prescribed N/A Experienced any changes in pain level or Yes management Left Footwear Slipper Slipper Right Footwear Slipper Slipper Pain Scale: 0-10 Numeric Is Patient Pain Free? Yes No Yes Lower Extremity Assessment/ Foot Assessment/ Toe Nail Assessment Left -Posterior Tibial Doppler Multiphasic -Dorsalis Pedis Palpable No -Dorsalis Pedis Doppler Multiphasic -Extremity Color Hyperpigmented, Hemosiderin -Hair Growth on Legs No -Hair Growth on Toes No -Temperature of Extremity Hot -Capillary Refill Greater than 3 Seconds -Dependent Rubor No -Blanched when Elevated No -Lipodermatosclerosis No -Other Deformity No -Prior Foot Ulcer No -Charcot Joint No -Prior Amputation No -Thick Yes -Discolored Yes -Deformed No -Improper Length & Hygeine No Right -Popliteal Doppler Multiphasic -Posterior Tibial Palpable No -Posterior Tibial Doppler Multiphasic -Dorsalis Pedis Palpable No -Extremity Color Hyperpigmented, Hemosiderin -Hair Growth on Legs No -Hair Growth on Toes No -Temperature of Extremity Hot -Capillary Refill Greater than 3 Seconds -Dependent Rubor No -Blanched when Elevated No -Lipodermatosclerosis No -Other Deformity No -Prior Foot Ulcer No -Charcot Joint No -Prior Amputation No -Thick Yes -Discolored Yes -Deformed No -Improper Length & Hygeine No Neuropathy Assessment Feet - Top Side and Bottom <Entered> (a) Communication Assessment Preferred language Hungarian Able to Read Yes Able to Write Yes Communication Tools None Right Hearing Abillity Normal Left Hearing Abillity Normal Visual Assistive Devices Glasses Teaching Assessment Preferences Verbal,Written, Demonstration Barriers to Learning None Readiness To Learn Fair Willingness to Engage in Self Management Med Activies Readiness to Engage in Self Management Med Activities Anxiety Level Anxious Cooperation Cooperative Perception Coherent Interest in Health Problem Asks Questions Education Importance Acknowledges Need Does Patient Smoke tobacco or other No substances Smoking Status Never smoker Is Patient Diabetic No Functional Assessment Recent Decline in Ability to Perform Denies Any Declines Culture/Muslim/Trimming Assembler Cultural/Muslim Needs that may affect No Treatment Plan Would you allow our hospital chief medical officer to No meet you for the purpose of spiritual/ emotional support? Trimming Assembler to contact place of tenriism No Teaching: Wound Center Control Swelling with Leg Elevation -Person Taught Patient *Venous -Person Taught Patient Skin Care -Person Taught Patient *Welcome to the Wound Center -Person Taught Patient (a) 1 - + WC - Nurse 1 - General Ulcer Measurement Start: 07/01/22 13:07 Freq: Status: Active Protocol: Activity Type Activity Date Activity User E-sign Co-sign Detail Recorded Client Recorded Date Recorded By Document 07/01/22 13:18 DL [id number] 07/01/22 13:52 DL Document 07/04/22 11:19 [id number] 07/04/22 11:20 JF Document 07/08/22 11:09 DL [id number] 07/08/22 11:19 DL 07/01/22 07/04/22 07/08/22 13:18 11:19 11:09 Wound Center Nurse 1 ELIAN Edema -Photo Taken Yes Lower Limb Edema Present Yes Right Calf (cm) 44.5 42 43.3 Right Ankle (cm) 24.5 25.5 26 Left Calf (cm) 44 41.6 42.5 Left Ankle (cm) 262 25.2 25.5 WC - Nurse 2 - General Ulcer CM Notes Start: 07/01/22 13:07 Freq: Status: Active Protocol: Activity Type Activity Date Activity User E-sign Co-sign Detail Recorded Client Recorded Date Recorded By Document 07/01/22 14:11 [id number] 07/01/22 14:12 Document 07/08/22 11:33 [id number] 07/08/22 11:34 JF 07/01/22 07/08/22 14:11 11:33 Pain Scale: 0-10 Numeric Is Patient Pain Free? Yes Yes - Nurse 3 - General Ulcer D/C NN Start: 07/01/22 13:07 Freq: Status: Active Protocol: Activity Type Activity Date Activity User E-sign Co-sign Detail Recorded Client Recorded Date Recorded By Document 07/01/22 14:48 DL [id number] 07/01/22 14:50 DL Edit Result 07/01/22 14:48 DL (1) [id number] 07/01/22 14:50 DL Document 07/04/22 11:19 JF [id number] 07/04/22 11:20 JF Document 07/08/22 11:53 JF [id number] 07/08/22 11:53 JF (1) Notes: => Dressing applied per A.Knowelton today in clinic. 07/01/22 07/04/22 07/08/22 14:48 11:19 11:53 Wound Care Center Nurse 3 Liv-Wound Care Cream bilateral legs -Lotion applied to leg before Yes Yes compression wrap -Multi-Layered Wrap Application Multi-Layer Multi-Layer Comp - Bilat ($ Comp - Bilat ($ ) ) elian -Multi-Layered Wrap Application Multi-Layer Comp - Bilat ($ ) Treatment Response Procedure Tolerated Well Vital Signs Temperature (97.8 F-99.1 F) 96.5 F L Temperature Source Temporal Pain Scale: 0-10 Numeric Is Patient Pain Free? Yes No Yes - Visit Discharge Discharge Condition Stable Stable Stable Ambulatory Status Wheelchair Wheelchair Wheelchair Transportation Private Auto Private Auto Accompanied by daughter daughter Medication Reconcilliation completed & Yes Yes provided to patient/care provider Clinical Summary of Care Provided Yes Yes Notes: Dressing applied per A. Knowelton today in clinic. Assessment/Plan Assessment/Plan (1) Cellulitis of left anterior lower leg: CODE(S): L03.116 - Cellulitis of left lower limb (2) Cellulitis of right anterior lower leg: CODE(S): L03.115 - Cellulitis of right lower limb (3) Edema of both lower legs due to peripheral venous insufficiency: CODE(S): I87.2 - Venous insufficiency (chronic) (peripheral); R60.0 - Localized edema (4) Lymphedema: CODE(S): I89.0 - Lymphedema, not elsewhere classified (5) Pain in both lower extremities: CODE(S): M79.604 - Pain in right leg; M79.605 - Pain in left leg PLAN: Plan Patient evaluated at the wound healing center for her bilateral lower extremity edema/lymphedema. Continue Doxycycline. The leg erythema is improving. Encouraged patient to lay flat to help with edema and to elevate legs when sitting. For compression will continue the 3M 2 layer wraps. She is tolerating them well. If she wants to shower before the wraps are changed, she may remove the wraps and then apply RANJAN wraps after she showers until the new 3M 2 layer wraps are placed. She has venous insufficiency from her vascular studies last September. Will obtain new venous and arterial studies for further evaluation of her edema/lymphedema. Instructed her that her gallbladder issues are more important than dealing with her edema and she needs to get that situation taken care of. Follow up one week to see me.
== END 2022-07-09 23:59 | disposition home or self-care (01) ==
LOC: WC 11:00
PROVIDERS: PCP Internal Medicine; Visit Provider Nurse Practitioner Family
DX: R60.0 Localized edema (principal); L03.116 Cellulitis of left lower limb; M54.9 Dorsalgia, unspecified; R26.2 Difficulty in walking, not elsewhere classified; L03.115 Cellulitis of right lower limb; I87.2 Venous insufficiency (chronic) (peripheral); M79.604 Pain in right leg; I89.0 Lymphedema, not elsewhere classified; M79.605 Pain in left leg
CPT/HCPCS: 29581; 99213; G0463

== ENCOUNTER → 2022-07-08 | Outpatient (CLI) | payer OTHER, SELFPAY ==
--- NOTE | 2022-07-08 12:26 | NM_ITS ---
CLINICAL: 72-year-old female with history of abdominal pain. RADIONUCLIDE HEPATOBILIARY SCINTIGRAPHY COMPARISON: Gallbladder ultrasound report 07/04/2022 FINDINGS: Following the intravenous administration of 4.8 mCi of 99m Tc Mebrofenin, hepatobiliary images reveal: The patient terminated acquisition at 53 minutes post tracer injection. 1. Relatively prompt and homogeneous radiopharmaceutical concentration is noted by a normal sized liver. No parenchymal defects are identified. 2. Gallbladder activity is not identified during 53 minutes of sequential imaging. 3. Small intestinal tract is observed at 8-9 minutes post radiopharmaceutical administration. 4. Washout of the radiopharmaceutical by the hepatic parenchyma appears qualitatively normal. NM/Hepatobilliary Imaging IMPRESSION: 1. ABNORMAL 99m Tc Mebrofenin hepatobiliary imaging examination. A. Nonvisualization of the gallbladder at 53 minutes post radiopharmaceutical administration in the nonacute setting is likely consistent with a high probability of chronic cholecystitis in patients with intermediate to high pretest probabilities of hepatobiliary disease and who have fasted for more than 4 and less than 24 hours. (Margo et al, Nucl Med Marlena Jacqueline Press pg. 35, 1981). B. The patient did not complete 60 minutes of image acquisition as defined above. Electronically Signed: Harsha Rodriguez, at 21:07 EST ,
== END | disposition home or self-care (01) ==
LOC: NM 12:24
PROVIDERS: PCP Internal Medicine; Referring Provider Internal Medicine; Visit Provider Internal Medicine
DX: R10.9 Unspecified abdominal pain (principal); I89.0 Lymphedema, not elsewhere classified
CPT/HCPCS: 78226; A9537

== ENCOUNTER 2022-07-22 10:00 | Outpatient (RCR) | payer OTHER, SELFPAY ==
[2022-07-10 00:13] VITALS: BP 223/83; PULSE 83; RESP 22; TEMP 36.3; BMI 40.7
[2022-07-15 11:46] VITALS: PULSE 77; RESP 16; TEMP 35.9; BMI 40.7
[2022-07-22 10:01] VITALS: TEMP 35.9; BMI 40.7
--- NOTE | 2022-07-22 11:39 | PCM.WC.PN ---
History of Present Illness Date of Service: 07/22/22 Chief Complaint: Bilateral lower leg swelling History of Wound: 72 year old female presents at the wound healing center for evaluation of her bilateral lower extremity edema and pain. She has a history of edema and she states she has not been wearing her compression because it has been painful. She currently does not have any wounds. She has a history of being seen at the wound center spring 2021 for ulcerations and edema to her bilateral lower extremities. She also has a history of back pain with sciatica and had a kyphoplasty. She sees pain management for her back pain. She has difficulty walking and uses a wheelchair when needing to walk long distances. She sleeps in a recliner because she has a water bed that she is can not get in and out of because of her bad back. She does not have a couch to be able to lay flat. She had a venous doppler on 10/04/22 which show the left sapheno-femoral junction is incompetent . Segmental valvular incompetence is noted within the great saphenous veins bilaterally. Accessory saphenous veins in the left proximal and distal thigh are incompetent. Progress of Wound: She has no wounds. Her edema is stable. She is wearing zip up compression stockings that her daughter purchased on line. They are unsure of the strength of them. Objective Data Objective Data Vital Signs: Vital Signs Temp Pulse Resp BP O2 Del Method 96.7 F L 77 16 223/83 H Room Air 07/22/22 10:01 07/15/22 11:46 07/15/22 11:46 07/10/22 00:13 07/15/22 11:46 Oxygen Delivery Method Room Air Weight: 230 lb 1.011 oz Body Mass Index (BMI) 40.7 Charges/Coding Visit Charges Office Visits / Consults: 09662 OV L3 Est Physical Exam Const alert, oriented x3 and well nourished Orientation / Consciousness: awake HEENT normocephalic Eyes General Eye: normal appearance of both eyes Lymph Lymphatic: lymphedema moderate Lymphatic Narrative: Bilateral lower extremity edema/lymphedema Resp normal respiratory effort, normal air movement and clear to auscultation bilaterally Effort and Inspection: able to speak in complete sentences Cardio regular rate Back/Spine Thoracic Spine / Upper Back: ROM limited Lumbar Spine / Lower Back: ROM limited and pain with ROM Extremity Extremity Narrative: Bilateral pedal pulses +2. +2 edema/lymphedema bilateral lower extremities. She has brown discoloration of her legs bilaterally. The thick plaques of skin have improved with the compression and moisturization. The erythema and warmth have resolved. Skin no wounds Skin Narrative: Hemosiderin staining of bilateral legs Neuro oriented x3 Speech: speech normal Psych mental status grossly normal and speech normal Debridement Note Debridement Note No debridement was completed: No debridement was completed today Post-Debridement Measurements and Additional Note: Post-Debridement Measurements/Treatment - Nurse 1 - General Ulcer Assessment Start: 07/15/22 11:46 Freq: Status: Active Protocol: MACIEJ.LOWEXT Activity Type Activity Date Activity User E-sign Co-sign Detail Recorded Client Recorded Date Recorded By Document 07/15/22 11:46 [facility] [id number] 07/15/22 11:54 BM Document 07/22/22 10:01 ML [id number] 07/22/22 10:14 ML 07/15/22 07/22/22 11:46 10:01 - Today's Visit Information Type of service Nurse-only Follow-up Visit Visit (Physician/OBJECTIVE C DEVELOPER ) Arrival Mode Wheelchair Wheelchair Transfer Assistance Other None Transfer Assist (Other) 2 Accompanied by marcie Patient Identification Verified (Name & Yes Yes ) Patient Requires Transmission-Based No No Precautions Safety Precautions NA Height and Weight Body Mass Index (BMI) 40.7 40.7 BMI Classification Obese Obese Vital Signs Temperature (97.8 F-99.1 F) 96.7 F L 96.7 F L Temperature Source Temporal Temporal Pulse Rate (60-100) 77 Pulse Location Monitor Respiratory Rate (12-18) 16 Respiratory rate source Observation Oxygen Delivery Method Room Air Source Monitor Position Sitting Blood Pressure Location Left Arm History Since Last Visit- (Skip if this is Patient's initial visit) Have you changed medications since your No No last visit? Any new allergies or adverse reactions No No Had a fall/change in ADL's that may No No increase risk of falls Signs or symptoms of abuse and/or No No neglect since last visit Have you been in the hospital since your No No last visit? Has dressing in place as prescribed Yes Has compression in place as prescribed No Yes Has offloadiing in place as prescribed N/A N/A Experienced any changes in pain level or No No management Left Footwear Slipper Regular Shoe Right Footwear Slipper Regular Shoe Pain Scale: 0-10 Numeric Is Patient Pain Free? Yes Yes - Nurse 1 - General Ulcer Measurement Start: 07/15/22 11:46 Freq: Status: Active Protocol: Activity Type Activity Date Activity User E-sign Co-sign Detail Recorded Client Recorded Date Recorded By Document 07/15/22 11:46 BMF [id number] 07/15/22 11:54 BMF Document 07/22/22 10:01 ML [id number] 07/22/22 10:14 ML 07/15/22 07/22/22 11:46 10:01 Wound Center Nurse 1 Lower Limb Edema Present Yes Right Calf (cm) 40.1 36 Right Ankle (cm) 25 24.5 Left Calf (cm) 40.4 35 Left Ankle (cm) 25 23.5 - Nurse 2 - General Ulcer CM Notes Start: 07/15/22 11:46 Freq: Status: Active Protocol: Activity Type Activity Date Activity User E-sign Co-sign Detail Recorded Client Recorded Date Recorded By Document 07/15/22 11:59 [id number] 07/15/22 11:59 JF Document 07/22/22 10:43 JF [id number] 07/22/22 10:43 JF 07/15/22 07/22/22 11:59 10:43 Pain Scale: 0-10 Numeric Is Patient Pain Free? Yes Yes - Nurse 3 - General Ulcer D/C NN Start: 07/15/22 11:46 Freq: Status: Active Protocol: Activity Type Activity Date Activity User E-sign Co-sign Detail Recorded Client Recorded Date Recorded By Document 07/15/22 12:18 AK [id number] 07/15/22 12:19 AK Document 07/15/22 12:19 AK [id number] 07/15/22 12:20 AK Document 07/22/22 10:43 JF [id number] 07/22/22 10:44 JF 07/15/22 07/15/22 07/22/22 12:18 12:19 10:43 Wound Care Center Nurse 3 bilateral -Lotion applied to leg before No compression wrap -Multi-Layered Wrap Application Multi-Layer Comp - Bilat ($ ) -Stockings Yes: 15-20mmHg Pain Scale: 0-10 Numeric Is Patient Pain Free? No Yes Yes WC - Visit Discharge Discharge Condition Stable Stable Ambulatory Status Ambulatory, Ambulatory Wheelchair Transportation Private Auto Private Auto Accompanied by daughter Medication Reconcilliation completed & Yes Yes provided to patient/care provider Clinical Summary of Care Provided Yes Yes Assessment/Plan Assessment/Plan (1) Edema of both lower legs due to peripheral venous insufficiency: CODE(S): I87.2 - Venous insufficiency (chronic) (peripheral); R60.0 - Localized edema (2) Lymphedema: CODE(S): I89.0 - Lymphedema, not elsewhere classified (3) Pain in both lower extremities: CODE(S): M79.604 - Pain in right leg; M79.605 - Pain in left leg (4) Back pain: CODE(S): M54.9 - Dorsalgia, unspecified PLAN: Plan Patient evaluated at the wound healing center for her bilateral lower extremity edema/lymphedema. Completed Doxycycline. Encouraged patient to lay flat to help with edema and to elevate legs when sitting. For compression she is wearing zip up compression stockings that her daughter purchased on line. Her edema/lymphedema seems stable wearing them. They are unsure of the strength, encouraged them to use 20-30 mmHg. With her chronic back pain, she still should be able to get 20-30 mmHg stockings on by herself. She canceled her vascular studies due to all the abdominal pain she is having from either her gallbladder or her hernia. Her last studies were done on 10/04/21 which showed: The left sapheno-femoral junction is incompetent. Segmental valvular incompetence is noted within the great saphenous veins bilaterally. Accessory saphenous veins in the left proximal and distal thigh are incompetent. She is not interested in any further treatment at this time. She may need to follow up with a vascular surgeon in the future if she continues to have edema/lymphedema issues. Follow up on an as needed bases.
== END 2022-07-23 15:15 | disposition home or self-care (01) ==
LOC: WC 10:00
PROVIDERS: PCP Internal Medicine; Visit Provider Nurse Practitioner Family
DX: I87.2 Venous insufficiency (chronic) (peripheral) (principal); R26.2 Difficulty in walking, not elsewhere classified; I89.0 Lymphedema, not elsewhere classified; R60.0 Localized edema; M79.604 Pain in right leg; M79.605 Pain in left leg; M54.9 Dorsalgia, unspecified
CPT/HCPCS: 29581; 99213; G0463

== ENCOUNTER → 2025-01-05 | Outpatient (CLI) | payer OTHER, SELFPAY ==
[2025-01-05 15:51] LABS: Mucous, Urine 0 SEEN /hpf (<or=2+); Red Blood Cells-Urine 0 SEEN /hpf (0-5); Squamous Epithelial Cells - UA 0 SEEN /hpf (5-10)
[2025-01-05 17:08] LABS: Creatinine, Urine (random) 90.10 mg/dL (28.00-217.00)
[2025-01-05 17:34] LABS: AST(SGOT) 30 U/L (<=31); Alanine Aminotransfer ALT/SGPT 32 U/L (<=34); Albumin, Serum 4.1 g/dL (3.4-4.8); Alkaline Phosphatase 47 U/L (35-104); Anion Gap 11 (5-15); BUN 15 mg/dL (4-19); BUN/Creat Ratio 19.3 RATIO (10-20); CRP 12.30 mg/L (0.0-3.0); Calcium,Total 9.9 mg/dL (7.6-11.0); Carbon Dioxide 23.1 mmol/L (21.0-32.0); Chloride 105 mmol/L (98-108); Cholesterol 191 mg/dL (<=200); Globulin 3.4 g/dL (2.2-4.2); Glucose 89 mg/dL (70-99); Low Density Lipoprotein Calc. 108 mg/dL; Potassium 4.5 mmol/L (3.3-5.1); Triglycerides 117 mg/dL; Very Low Density Lipoprotein 23 mg/dL (5-40); cholesterol:hdl ratio screen 3.22
[2025-01-05 17:46] LABS: Color, Urine Yellow (Yellow); Glucose, Dipstick Normal (Normal); Ketone-Dipstick Negative (Negative); Leukocyte Esterase-Dipstick 25 /ul (Negative); Nitrite-Dipstick Negative (Negative); Occult Blood-Urine Negative /ul (Negative); Protein-Dipstick Negative (Negative); Specific Gravity, Urine 1.015 (1.002-1.030); Urine Bilirubin Dipstick Negative (Negative)
[2025-01-05 17:57] LABS: Hematocrit 40.9 % (37-47); Hemoglobin 12.9 g/dL (12.0-15.0); Immature Granulocytes Count 0.020 X10^3/uL (0.0-0.0); Mean Corp Hgb Conc 31.5 g/dL (32-36); Mean Corpuscular Volume 84.2 fL (81-99); Mean Platelet Vol. 10.5 fl (6.2-12.0); NRBC Flagged by Analyzer 0 % (0-5); Platelet Count 258 K/mm3 (150-450); RBC Distribution Width CV 13.8 % (11.6-14.6); RBC Distribution Width SD 42.8 fl (35.1-43.9); Red Blood Count 4.86 M/mm3 (4.2-5.4); White Blood Count 7.0 K/mm3 (4.4-11.0)
[2025-01-05 18:06] LABS: Vitamin B12 > 4000 pg/mL (180-914); Vitamin D,25 Hydroxy 56.1 ng/mL (30-100)
== END | disposition home or self-care (01) ==
LOC: LAB 15:45
PROVIDERS: PCP Internal Medicine; Referring Provider Internal Medicine; Visit Provider Internal Medicine
DX: Z13.220 Encounter for screening for lipoid disorders (principal); K80.10 Calculus of gallbladder with chronic cholecystitis without obstruction; K42.0 Umbilical hernia with obstruction, without gangrene; I89.0 Lymphedema, not elsewhere classified; E53.8 Deficiency of other specified B group vitamins; E55.9 Vitamin D deficiency, unspecified; R31.9 Hematuria, unspecified; R73.9 Hyperglycemia, unspecified
CPT/HCPCS: 36415; 80053; 80061; 81001; 82306; 82570; 82607; 83036; 84443; 85025; 85652; 86140